=== PATIENT | male | born 1935 | race African-American/Black ===

== ENCOUNTER 2018-01-04 16:24 | Inpatient (IN) | payer MEDICARE ==
[2018-01-04] MEDS ORDERED: Insulin Regular 300 UNITS/3 ML VIAL ONE (18:32)
[2018-01-04 18:45] LABS: #Basophils 0.1 thou/uL (0.0-0.2); #Eosinphils 0.4 thou/uL (0.0-0.7); #Lymphocytes 1.5 thou/uL (1.20-3.40); #Monocytes 0.6 thou/uL (0.11-0.59); #Neutrophils 4.8 thou/uL (1.40-6.50); %Eosinophils 4.9 % (0.0-10.0); %Lymphocytes 20.9 % (21.0-51.0); %Monocytes 7.9 % (0.0-10.0); %Neutrophils 65.3 % (42.0-75.0); Hemoglobin 12.9 g/dL (14.0-18.0); Mean Corpuscular Hemoglobin 30.6 pg (27.0-31.0); Mean Corpuscular Volume 92.8 fl (80.0-94.0); Mean Platelet Volume 8.8 fL (7.4-10.4); Platelet Count 243 thou/uL (130-400); RBC Distribution Width 12.4 % (11.5-14.5); Red Blood Cell (RBC) Count 4.22 mill/uL (4.70-6.10); White Blood Cell (WBC) Count 7.3 thou/uL (4.8-10.8)
[2018-01-04 19:02] LABS: Bicarbonate (HCO3v) 17.5 mmol/L (1.0-85.0); CO2 Tension (PvCO2) 31.6 mmHg (41.0-51.0); Calcium, Ionized 1.05 mmol/L (1.12-1.32); Hemoglobin - Calc 13.9 g/dL (12.0-18.0); O2 Tension (PvO2) 51.7 mmHg (35.0-45.0); Potassium 5.6 mmol/L (3.4-4.7); T. Carbon Dioxide 18.5 mmol/L (1.0-85.0); pH (Venous) 7.351 (7.35-7.45); vO2 Saturation-calc 85.1 % (0.0-100.0)
[2018-01-04 19:11] LABS: ALT (SGPT) 20 U/L (8-55); AST (SGOT) 12 U/L (5-34); Albumin 3.4 g/dL (3.4-4.8); Alkaline Phosphatase 106 U/L (40-150); Anion Gap 19 mmol/L (10-20); BUN (Urea Nitrogen) 51 mg/dL (8.4-25.7); Bilirubin, Total 0.6 mg/dL (0.2-1.2); CK (CPK) 207 U/L (30-200); Calc. Creatinine Clearance 0 mL/min (70-130); Calcium 8.9 mg/dL (7.8-10.44); Carbon Dioxide 18 mmol/L (23-31); Chloride 97 mmol/L (98-107); Estimated GFR-MDRD 6; Globulin 3.2 g/dL (2.4-3.5); Lipase 8 U/L (8-78); Magnesium 2.5 mg/dL (1.6-2.6); Potassium 5.7 mmol/L (3.5-5.1); Protein, Total 6.6 g/dL (5.8-8.1); Sodium 128 mmol/L (136-145)
[2018-01-04 19:14] LABS: CKMB 6.6 ng/mL (0-6.6); Troponin I 0.012 ng/mL (< 0.028)
--- NOTE | 2018-01-04 19:18 | RAD ---
PORTABLE CHEST: 01/04/18 HISTORY: Dyspnea. No comparison. Elevated right hemidiaphragm. There is abnormal opacification in the left lung base which obscures the left hemidiaphragm. The find ings suggest left basilar infiltrate and/or atelectasis. The upper lung bolaños appear clear. Heart size is within normal range. IMPRESSION: 1. Evidence of left basilar atelectasis and/or infiltrate. 2. Elevated right hemidiaphragm. POS: [facility]
[2018-01-04 19:22] LABS: Glucose 666 mg/dL (83-110)
[2018-01-04 20:39] LABS: Bilirubin Negative (Negative); Blood, Urine Negative (Negative); Clarity CLEAR (Clear); Glucose, Urine (Dipstick) >=1000 mg/dL (Negative); Leukocyte Small (Negative); Nitrite Negative (Negative); Protein, Urine (Dipstick) Negative (Neg-Trace); Specific Gravity, Urine 1.016 (1.002-1.036); Urobilinogen 0.2 mg/dL (0.2-1.0); pH, Urine 6.5 (5.0-9.0)
[2018-01-04 20:41] LABS: Bacteria/HPF 1+ HPF (None Seen); Hyaline Casts/LPF 0-3 HYALINE CAST LPF (0-3 Hyaline); RBC/HPF 0-3 HPF (0-3); Squamous Epithelial 0-3 HPF (0-3)
[2018-01-04 22:34] LABS: Hemoglobin A1c 18.7 % (4.0-6.0)
[2018-01-04] MEDS ORDERED: Dextrose 5% in Water 1,000 ML IV PRN (22:42)
[2018-01-04] MEDS ORDERED: Dextrose 50% Abboject 50 ML SYRINGE SLOW IVP PRN (22:42)
[2018-01-04] MEDS: Sodium Bicarbonate 100 MEQ in Sodium Chloride 0.45% 1,000 ML IV SCH (23:46)
[2018-01-05] MEDS ORDERED: NPH, Human Insulin Isophane 300 UNIT/3 ML VIAL SC SCH (00:30)
[2018-01-05] MEDS ORDERED: Nitroglycerin 0.4 MG TAB (25 Tab Bottle) PO PRN (00:30)
[2018-01-05] MEDS ORDERED: hydrALAZINE 20 MG/ML VIAL SLOW IVP PRN (00:32)
[2018-01-05] MEDS ORDERED: Labetalol HCl 100 MG/20 ML VIAL SLOW IVP PRN (00:32)
[2018-01-05] MEDS ORDERED: Ondansetron HCl/PF 4 MG/2 ML Vial IVP PRN (00:33)
[2018-01-05] MEDS ORDERED: Ondansetron ODT 4 MG TAB PO PRN (00:33)
[2018-01-05] MEDS ORDERED: Senokot 8.6 MG TAB PO PRN (00:33)
[2018-01-05] MEDS ORDERED: Bisacodyl 10 MG SUPP PR PRN (00:33)
[2018-01-05] MEDS ORDERED: Acetaminophen 325 MG TAB PO PRN (00:33)
--- NOTE | 2018-01-05 00:39 | PDOC.EVN ---
Event Note - Event Note Event Note: Patient seen and examined on 01/04. Note dictated.
[2018-01-05] MEDS ORDERED: Terazosin HCl 5 MG CAP PO SCH (00:45)
--- NOTE | 2018-01-05 01:12 | HP ---
DATE OF ADMISSION: 01/04/2018 The patient was seen and examined on 01/04/2018. CHIEF COMPLAINT: Abnormal labs. PRIMARY CARE PHYSICIAN: [facility] in [place]. HISTORY OF PRESENT ILLNESS: Patient is an 82-year-old male with hypertension, currently on KEATON inhib itor, diabetes mellitus type 2, and hyperlipidemia, presented to the emergency room for abnormal labs . He was found to have elevated blood sugar as an outpatient for which he was advised to come to the emergency room for evaluation. His blood sugar was 709 with creatinine of 10.54 with a BUN 47. His creatinine last year was 1.33 and 2 months ago was 1.76. Patient has history of benign prostatic hypertrophy and is currently on terazosin 10 mg daily. He al so takes glimepiride for diabetes. The primary care physician is trying to switch him to insulin. H e denies any chest pain, shortness of breath, palpitations. However, over the last 2 days, he notice d bilateral lower extremity swelling. No nausea, vomiting, diarrhea reported. Please note patient i s also on 8 mEq of potassium chloride. His potassium in the emergency room was 5.4 this morning and 5.7. He received Kayexalate, Novolin 10 units and IV fluid in the emergency room. PAST MEDICAL HISTORY: 1. Diabetes mellitus type 2. 2. Hypertension. 3. Hyperlipidemia. PAST SURGICAL HISTORY: Reviewed with the patient and none. ALLERGIES: No known drug allergies. CURRENT HOME MEDICATIONS: Aspirin 81 mg daily, atenolol 100 mg daily, glimepiride 1 mg daily, terazo sin 10 mg at bedtime, potassium chloride 8 mEq daily, Lipitor 40 mg daily, amlodipine/benazepril 5/40 once a day. SOCIAL HISTORY: Patient currently lives at home, has good family support, ambulates without any assi stance. No smoking, alcohol or drug use. FAMILY HISTORY: Negative for premature coronary artery disease or renal problems. REVIEW OF SYSTEMS: The following complete review of systems was negative, unless otherwise mentioned in the HPI or below: Constitutional: Weight loss or gain, ability to conduct usual activities. Sk in: Rash, itching. Eyes: Double vision, pain. ENT/Mouth: Nose bleeding, neck stiffness, pain, te nderness. Cardiovascular: Palpitations, dyspnea on exertion, orthopnea. Respiratory: Shortness of breath, wheezing, cough, hemoptysis, fever or night sweats. Gastrointestinal: Poor appetite, abdom inal pain, heartburn, nausea, vomiting, constipation, or diarrhea. Genitourinary: Urgency, frequenc y, dysuria, nocturia. Musculoskeletal: Pain, swelling. Neurologic/Psychiatric: Anxiety, depressio n. Allergy/Immunologic: Skin rash, bleeding tendency. PHYSICAL EXAMINATION: VITAL SIGNS: In the emergency room showed temperature 97.9, respirations 20, pulse rate of 73 with a blood pressure of 149/74 with O2 saturation 98% on room air. GENERAL: An 82-year-old male in no apparent distress. HEENT: Head atraumatic, normocephalic. Sclerae anicteric. Moist mucous membranes. No oral lesion. NECK: Supple, no JVD appreciated. No carotid bruit. LUNGS: Showed diminished air entry at bases. No rhonchi, rales, or wheezing noted. HEART: S1, S2 present. Regular rate and rhythm. No murmur, rubs, or gallops appreciated. ABDOMEN: Soft, nontender, bowel sounds present. EXTREMITIES: A 2+ edema in bilateral lower extremities up to the knees. No calf tenderness. Homans ' sign was negative. SKIN: Warm and dry. LYMPH NODES: No palpable lymph nodes in the neck. PERIPHERAL VASCULAR: Radial pulses palpable bilaterally. MUSCULOSKELETAL: No joint swelling or tenderness. LABORATORY AND X-RAY FINDINGS: As discussed above. Repeat potassium was 5.6. BNP was 103. Troponi n was negative. Ketone was 0.34. Urinalysis showed glucosuria with 11-20 wbc's, 1+ bacteria. Hemog lobin was 12.9. Sodium was 128 with bicarbonate of 18. Hemoglobin A1c was 18.7. Serum osmolarity 3 12. EKG by my review showed sinus rhythm with right bundle-branch block. Chest x-ray by my review s howed probable atelectasis, more than infiltrate on the left. IMPRESSION AND PLAN: 1. Acute kidney injury on chronic kidney disease stage 2, multifactorial, rule out obstructive uropa thy. 2. Uncontrolled diabetes with severe hyperglycemia. Please note the hemoglobin A1c was 18.7. 3. Metabolic acidosis. 4. Hyperkalemia due to renal failure. 5. Hyponatremia secondary to hyperglycemia. 6. Suspected urinary tract infection. 7. Slightly elevated ketones. 8. Chronic anemia. 9. Benign prostatic hypertrophy. 10. Hypertension. 11. Hyperlipidemia. PLAN: Patient will be monitored in the telemetry unit. He received Kayexalate. Nephrology will be consulted. We will start him on sodium bicarbonate, IV infusion. We will repeat labs on a daily bas is. We will get renal ultrasound. We will hold KEATON inhibitors and oral potassium for now. Resume o ther medications. The echocardiogram will be done. We will consult walking program. Plan of care was discussed with the patient and the family in detail and they stated understanding. The patient will require 3-4 days for stabilization given his significant renal failure. CODE STATUS: FULL CODE. Surrogate decision maker, the patient makes his own decisions with the help of his family.
[2018-01-05] MEDS: Insulin Regular 300 UNITS/3 ML VIAL SC PRN ×3 (04:07→16:58)
--- NOTE | 2018-01-05 04:34 | PDOC.EVN ---
Event Note - Event Note Event Note: Postvoid residual >900 ml. Will consult Urology. Rose catheter.
[2018-01-05 05:23] LABS: #Eosinphils 0.4 thou/uL (0.0-0.7); #Lymphocytes 1.7 thou/uL (1.20-3.40); #Monocytes 0.6 thou/uL (0.11-0.59); #Neutrophils 3.7 thou/uL (1.40-6.50); %Basophils 0.7 % (0.0-1.0); %Eosinophils 6.5 % (0.0-10.0); %Lymphocytes 25.9 % (21.0-51.0); %Monocytes 8.9 % (0.0-10.0); Hemoglobin 11.9 g/dL (14.0-18.0); Mean Corpuscular HGB CONC 33.8 g/dL (32.0-36.0); Mean Corpuscular Hemoglobin 30.9 pg (27.0-31.0); Mean Corpuscular Volume 91.5 fl (80.0-94.0); Mean Platelet Volume 8.8 fL (7.4-10.4); Platelet Count 229 thou/uL (130-400); RBC Distribution Width 12.5 % (11.5-14.5); Red Blood Cell (RBC) Count 3.85 mill/uL (4.70-6.10); White Blood Cell (WBC) Count 6.4 thou/uL (4.8-10.8)
[2018-01-05 05:39] LABS: Anion Gap 17 mmol/L (10-20); BUN (Urea Nitrogen) 49 mg/dL (8.4-25.7); Calc. Creatinine Clearance 0 mL/min (70-130); Calcium 8.5 mg/dL (7.8-10.44); Carbon Dioxide 18 mmol/L (23-31); Chloride 101 mmol/L (98-107); Estimated GFR-MDRD 6; Glucose 366 mg/dL (83-110); Potassium 4.4 mmol/L (3.5-5.1); Sodium 132 mmol/L (136-145)
[2018-01-05] MEDS ORDERED: Diabetic Tussin 200 MG/10 ML UDCUP PO PRN (07:52)
[2018-01-05] MEDS ORDERED: Chloraseptic Spray 180 ml Bottle PO PRN (07:52)
[2018-01-05] MEDS ORDERED: Artificial Tears 18 DROP/0.9 ML EA EYE PRN (07:52)
[2018-01-05] MEDS ORDERED: Loratadine 10 MG TAB PO PRN (07:52)
[2018-01-05] MEDS ORDERED: Eucerin (Mineral Oil/Petrolatum,White) 30 gm Jar TOP PRN (07:52)
[2018-01-05] MEDS ORDERED: Mag-Al 1200 mg/1200 mg/30 ML UDCUP PO PRN (07:52)
[2018-01-05] MEDS ORDERED: Loperamide HCl 2 MG CAP PO PRN (07:52)
[2018-01-05] MEDS ORDERED: Temazepam 15 MG CAP PO PRN (07:52)
[2018-01-05] MEDS ORDERED: HYDROcodone/Acetaminophen 5/325 mg Tablet PO PRN (07:52)
[2018-01-05] MEDS ORDERED: Sodium Chloride 0.65% Nasal 44 ML BOT EA NARE PRN (07:52)
[2018-01-05] MEDS: Carvedilol 6.25 MG TAB PO SCH ×2 (09:20→16:58)
[2018-01-05] MEDS: Aspirin 81 mg Enteric Coated Tablet PO SCH (09:20)
[2018-01-05] MEDS: Sodium Bicarbonate 100 MEQ in Sodium Chloride 0.45% 1,000 ML IV SCH ×2 (09:20→20:45)
[2018-01-05] MEDS: NPH, Human Insulin Isophane 300 UNIT/3 ML VIAL SC SCH ×2 (09:20→20:52)
[2018-01-05] MEDS: Heparin 5,000 UNITS/ML VIAL SC SCH ×2 (09:20→20:50)
--- NOTE | 2018-01-05 09:28 | PDOC.PN ---
- Subjective Encounter Start Date: 01/05/18 Encounter Start Time: 08:10 -: old records requested/rev Patient seen and examined. No new complaints. No overnight events pt had good BM this morning, he has patel and made good amount of urine - Objective Resuscitation Status: Resuscitation Status FULL:Full Resuscitation MAR Reviewed: Yes Vital Signs & Weight: Vital Signs (12 hours) Temp Pulse Resp BP BP Pulse Ox 01/05/18 04:00 98.0 F 69 16 157/86 H 93 L 01/04/18 23:11 97.6 F 68 18 159/87 H 93 L I&O: 01/04/18 01/05/18 01/06/18 06:59 06:59 06:59 Intake Total 910 Output Total 1200 Balance -290 Result Diagrams: 01/05/18 04:37 01/05/18 04:37 Additional Labs: Accuchecks 01/05/18 04:00 POC Glucose 326 H Radiology Reviewed by me: Yes (renal us, chest xray) EKG Reviewed by me: Yes (nsr) Phys Exam - Physical Examination Constitutional: NAD HEENT: PERRLA, moist MMs, sclera anicteric Neck: no JVD, supple Respiratory: no wheezing, no rales, no rhonchi Cardiovascular: RRR, no significant murmur, no rub Gastrointestinal: soft, non-tender, no distention, positive bowel sounds patel+ Musculoskeletal: no edema, pulses present Neurological: non-focal, normal sensation, moves all 4 limbs Psychiatric: normal affect, A&O x 3 Skin: no rash, normal turgor Dx/Plan (1) Acute kidney failure Status: Acute (2) Hyperglycemia due to type 2 diabetes mellitus Code(s): E11.65 - TYPE 2 DIABETES MELLITUS WITH HYPERGLYCEMIA Status: Acute (3) Hyperkalemia Code(s): E87.5 - HYPERKALEMIA Status: Acute (4) Hyponatremia Code(s): E87.1 - HYPO-OSMOLALITY AND HYPONATREMIA Status: Acute (5) Metabolic acidosis Code(s): E87.2 - ACIDOSIS Status: Acute (6) Urinary retention Code(s): R33.9 - RETENTION OF URINE, UNSPECIFIED Status: Acute (7) Anemia, normocytic normochromic Code(s): D64.9 - ANEMIA, UNSPECIFIED Status: Chronic (8) BPH (benign prostatic hyperplasia) Code(s): N40.0 - BENIGN PROSTATIC HYPERPLASIA WITHOUT LOWER URINRY TRACT SYMP Status: Chronic (9) Dyslipidemia Code(s): E78.5 - HYPERLIPIDEMIA, UNSPECIFIED Status: Chronic (10) Hypertension Code(s): I10 - ESSENTIAL (PRIMARY) HYPERTENSION Status: Chronic (11) UTI (urinary tract infection) Status: Suspected (12) Constipation Code(s): K59.00 - CONSTIPATION, UNSPECIFIED Status: Resolved - Plan cont current plan of care * continue bicarbonate drip * monitor renal function * renal US * discussed with nephrology * urology consulted * medication reviewed as below * symptomatic treatment. Review of Systems - Review of Systems ENT: negative: Ear Pain, Ear Discharge, Nose Pain, Nose Discharge, Nose Congestion, Mouth Pain, Mouth Swelling, Throat Pain, Throat Swelling, Other Respiratory: negative: Cough, Dry, Shortness of Breath, Hemoptysis, SOB with Excertion, Pleuritic Pain, Sputum, Wheezing Cardiovascular: negative: chest pain, palpitations, orthopnea, paroxysmal nocturnal dyspnea, edema, light headedness, other Gastrointestinal: negative: Nausea, Vomiting, Abdominal Pain, Diarrhea, Constipation, Melena, Hematochezia, Other Genitourinary: negative: Dysuria, Frequency, Incontinence, Hematuria, Retention , Other Musculoskeletal: negative: Neck Pain, Shoulder Pain, Arm Pain, Back Pain, Hand Pain, Leg Pain, Foot Pain, Other Skin: negative: Rash, Lesions, Chuckie, Bruising, Other - Medications/Allergies Allergies/Adverse Reactions: Allergies Allergy/AdvReac Type Severity Reaction Status Date / Time No Known Allergies Allergy Verified 01/05/18 03:01 Medications: Current Medications Acetaminophen (Tylenol) 650 mg PO Q4H PRN PRN Reason: Headache/Fever or Pain Hydrocodone Bitart/Acetaminophen ([place] 5/325) 1 tab PO Q4H PRN PRN Reason: Moderate Pain (4-6) Al Hydroxide/Mg Hydroxide (Maalox) 15 ml PO Q4H PRN PRN Reason: Heartburn or Indigestion Artificial Tears (Tears Naturale) 0 drop EA EYE PRN PRN PRN Reason: Dry Eyes Aspirin (Ecotrin) 81 mg PO DAILY [facility] Bisacodyl (Dulcolax) 10 mg WA Q24H PRN PRN Reason: Constipation Carvedilol (Coreg) 6.25 mg PO BID[facility] Dextrose/Water (Dextrose 50%) 25 gm SLOW IVP PRN PRN PRN Reason: Hypoglycemia Docusate Sodium (Colace) 100 mg PO BID [facility] Famotidine (Pepcid) 20 mg PO DAILY [facility] Glucagon (Glucagon) 1 mg IM PRN PRN PRN Reason: Hypoglycemia Guaifenesin (Robitussin Sf) 200 mg PO Q4H PRN PRN Reason: Cough Heparin Sodium (Porcine) (Heparin) 5,000 units SC BID [facility] Hydralazine HCl (Apresoline) 10 mg SLOW IVP Q4H PRN PRN Reason: SBP Greater Than 180 Sodium Bicarbonate 100 meq/ (Sodium Chloride) 1,100 mls @ 100 mls/hr IV .Q11H [facility] Last Admin: 01/04/18 23:46 Dose: 1,100 mls Dextrose/Water (D5w) 1,000 mls @ 0 mls/hr IV .Q0M PRN; As Directed PRN Reason: Hypoglycemia Insulin Human NPH (Humulin N) 10 unit SC BID [facility] Insulin Human Regular (Humulin R) 0 units SC .MILD SLIDING SCALE PRN PRN Reason: Mild Correctional Scale Insulin Human Regular (Humulin R) 0 units SC .BEDTIME SLIDING SC PRN PRN Reason: Bedtime Correctional Scale Last Admin: 01/05/18 04:07 Dose: 4 unit Labetalol HCl (Normodyne) 10 mg SLOW IVP Q4H PRN PRN Reason: Systolic BP > 180 Loperamide HCl (Imodium) 2 mg PO PRN PRN PRN Reason: Diarrhea/Loose Stools Loratadine (Claritin) 10 mg PO DAILYPRN PRN PRN Reason: Sinus Symptoms Mineral Oil/White Petrolatum (Eucerin Cream) 0 gm TOP BIDPRN PRN PRN Reason: Dry Skin Nitroglycerin (Nitrostat) 0.4 mg PO Q5MIN PRN PRN Reason: Chest Pain Ondansetron HCl (Zofran Odt) 4 mg PO Q6H PRN PRN Reason: Nausea/Vomiting Ondansetron HCl (Zofran) 4 mg IVP Q6H PRN PRN Reason: Nausea/Vomiting Phenol (Chloraseptic [place] 180 Ml Bot) 0 ml PO PRN PRN PRN Reason: Sore Throat Senna (Senokot) 2 tab PO HSPRN PRN PRN Reason: Constipation Sodium Chloride (Flush - Normal Saline) 10 ml IVF Q12HR [facility] Sodium Chloride (Flush - Normal Saline) 10 ml IVF PRN PRN PRN Reason: Saline Flush Sodium Chloride ([place]ullivan Nasal [place] 0.65%) 0 ml EA NARE QIDPRN PRN PRN Reason: Nasal Congestion Temazepam (Restoril) 15 mg PO HSPRN PRN PRN Reason: Insomnia Terazosin HCl (Hytrin) 10 mg PO HS [facility]
--- NOTE | 2018-01-05 09:37 | ULT ---
RENAL SONOGRAM: DATE: 01/05/18. HISTORY: Renal failure. FINDINGS: There is evidence of at least a small right pleural effusion. The right kidney measures 10.2 cm x 5.2 cm with the left kidney measuring 10.5 cm x 5.9 cm. There is minimal bilateral hydronephrosis of uncertain etiology. No renal mass or renal calculus is evident on provided sonographic images of each kidney. No perinephric fluid collection is identified. A Rose catheter is noted in place in the urinary bladder. The jenkins of the urinary bladder appear p rominently thickened. While this could be attributable to the decompressed nature of the urinary dusty dder or longstanding Rose catheter in place, followup imaging is advised given the appearance of the jenkins of the urinary bladder and one region of the urinary bladder appears heterogeneous in appearan ce, but I am unsure if this is related to the urinary bladder or adjacent structures. Again, followu p evaluation is recommended. IMPRESSION: 1. Pelvocaliectasis/trace bilateral hydronephrosis. 2. Rose catheter in the urinary bladder. The jenkins of the urinary bladder also demonstrate abnorma l appearance and are more thickened than typically expected for decompressed nature of the urinary bl adder. There is an area of heterogeneity also present which could be related to a closely adjacent s tructure or the urinary bladder wall. As a result, followup evaluation of the urinary bladder is rec ommended. POS: [facility]
[2018-01-05] MEDS: Famotidine 20 MG TAB PO SCH (10:38)
[2018-01-05] MEDS: Docusate 100 MG CAP PO SCH ×2 (10:38→20:59)
--- NOTE | 2018-01-05 10:38 | CON ---
DATE OF CONSULTATION: 01/05/2018 HISTORY OF PRESENT ILLNESS: Mr. Smith is an 82-year-old black male with known history of hypertens ion and admitted for an acute kidney injury. His creatinine was noted at 10.5. He was initially at the [place] ER with a blood sugar of 709. At the same time, there was a concomitant finding of creatinine of 10.5. Previously, his creatinine was ranging form 1.3 to 1.7. Of interest, this patie nt is unaware about having any renal dysfunction in the past. REVIEW OF SYSTEMS: No nausea, no vomiting, occasional leg swelling. No abdominal pain, no diarrhea, no constipation, no headache, no diplopia, no syncopal episode, no productive cough, no fever or chi lls. Appetite and energy level is fair. No abdominal pain. No gross hematuria. No dysuria, no uri nary frequency, no hematochezia, no melena, no hematemesis. HOME MEDICATIONS: Includes the following, aspirin 81 mg daily, atenolol 100 mg once a day, glimepiri de 1 mg daily, terazosin 10 mg at bedtime, KCl 10 mEq daily, Lipitor 40 mg at bedtime, amlodipine/tahira azepril - 5/40 daily. PAST MEDICAL HISTORY: 1. Type 2 diabetes mellitus. 2. Hypertension. 3. Hyperlipidemia. PAST SURGICAL HISTORY: The patient denies any previous surgeries - he states this is the first time he has been in the hospital. ALLERGIES: No known drug allergies. TRAUMA: None. IMMUNIZATIONS: Up to date. HOSPITALIZATIONS: Please see past medical history. FAMILY HISTORY: No family history of ESRD. SOCIAL HISTORY: The patient originally from [place] and moved to [place] recently. He lives wi th his child. He has six children. Single. No alcohol intake, no IV drug abuse. No history of smo suze. No blood transfusion. Education, 8th grade. 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 PHYSICAL EXAMINATION: VITAL SIGNS: Blood pressure is 157/86, heart rate 69, respiratory rate 16, temperature 98, pulse ox 93%. GENERAL: Noted to be awake, alert, comfortable, ambulatory, not in distress. SKIN: Adequate turgor. HEENT: He has pinkish conjunctivae, anicteric sclerae. NECK: No neck mass, no carotid bruits, no JVD. CHEST: No deformities. LUNGS: Clear breath sounds. No wheezing, no crackles. HEART: Normal sinus rhythm. No murmur, no gallops or rubs. ABDOMEN: Globular, soft, nontender, no masses. EXTREMITIES: No edema. NEUROLOGIC: Moving all extremities. No tremors, no asterixis, no ataxia. LABORATORY DATA AND IMAGING: Of 01/05/2018, sodium 132, potassium 4.4, chloride 101, carbon dioxide 18, BUN is 49, creatinine 10.7, glucose 366, calcium 8.5. BNP is 103. Further review of serum creat inine shows the following on 01/04/2018, 10.7. Previous creatinine was 1.7 earlier last year. Chest x-ray, no CHF. Renal ultrasound is pending. Urinalysis of 12/2017, specific gravity 1.016, glucose is more than 1000, no protein, WBC 11-20, RBCs , 0-3. ASSESSMENT AND PLAN: Acute kidney injury - hemodynamically mediated renal dysfunction. Please note, this patient has been taking KEATON inhibitors. Unclear, if he was on a diuretic previously. Our plan is to empirically volume replete him. We are awaiting results of the renal ultrasound. He is makin g some significant urine output. There is no indication for any dialytic intervention with this hiram ent. Continue to hold off any diuretics, KEATON inhibitors or ARB. Overall, I agree with current manag ement. Recheck base met and CBC in a.m.
[2018-01-05] MEDS: Terazosin HCl 5 MG CAP PO SCH (20:49)
[2018-01-06 02:34] VITALS: BMI 30.1
[2018-01-06 05:44] LABS: #Basophils 0.1 thou/uL (0.0-0.2); #Eosinphils 0.3 thou/uL (0.0-0.7); #Lymphocytes 2.3 thou/uL (1.20-3.40); #Monocytes 0.9 thou/uL (0.11-0.59); #Neutrophils 5.1 thou/uL (1.40-6.50); %Basophils 1.1 % (0.0-1.0); %Lymphocytes 26.2 % (21.0-51.0); %Monocytes 10.8 % (0.0-10.0); Hemoglobin 12.3 g/dL (14.0-18.0); Mean Corpuscular HGB CONC 33.6 g/dL (32.0-36.0); Mean Corpuscular Hemoglobin 30.8 pg (27.0-31.0); Mean Corpuscular Volume 91.7 fl (80.0-94.0); Mean Platelet Volume 8.6 fL (7.4-10.4); Platelet Count 253 thou/uL (130-400); RBC Distribution Width 12.7 % (11.5-14.5); Red Blood Cell (RBC) Count 4.01 mill/uL (4.70-6.10); White Blood Cell (WBC) Count 8.7 thou/uL (4.8-10.8)
[2018-01-06] MEDS: Sodium Bicarbonate 100 MEQ in Sodium Chloride 0.45% 1,000 ML IV SCH (07:05)
[2018-01-06 07:41] LABS: Calcium 9.2 mg/dL (7.8-10.44); Chloride 104 mmol/L (98-107); Glucose 154 mg/dL (83-110); Potassium 3.2 mmol/L (3.5-5.1); Sodium 141 mmol/L (136-145)
[2018-01-06 07:43] LABS: Anion Gap 10 mmol/L (10-20); Carbon Dioxide 30 mmol/L (23-31)
[2018-01-06 07:46] LABS: BUN (Urea Nitrogen) 16 mg/dL (8.4-25.7)
[2018-01-06 08:15] LABS: Calc. Creatinine Clearance 0 mL/min (70-130); Estimated GFR-MDRD 41
[2018-01-06] MEDS: Carvedilol 6.25 MG TAB PO SCH ×2 (09:01→18:27)
[2018-01-06] MEDS: Aspirin 81 mg Enteric Coated Tablet PO SCH (09:01)
[2018-01-06] MEDS: Docusate 100 MG CAP PO SCH ×2 (09:01→21:16)
[2018-01-06] MEDS: Famotidine 20 MG TAB PO SCH (09:01)
[2018-01-06] MEDS: NPH, Human Insulin Isophane 300 UNIT/3 ML VIAL SC SCH (09:02)
[2018-01-06] MEDS: Heparin 5,000 UNITS/ML VIAL SC SCH (09:02)
[2018-01-06] MEDS ORDERED: Potassium Chloride 20 MEQ TAB PO SCH (09:30)
[2018-01-06] MEDS: Sodium Chloride 0.9% 1,000 ML IV SCH ×2 (10:00→18:27)
--- NOTE | 2018-01-06 11:32 | PRG ---
DATE OF SERVICE: 01/06/2018 RENAL MEDICINE SUBJECTIVE: Mr. Smith is an 82-year-old old black male who was admitted for acute kidney injury. His initial creatinine was noted at 10.74. He was given IV hydration and Rose catheter was inserted . This morning, his renal function is dramatically improved with a creatinine of 1.9. Please note t hat ultrasound suggested some traces of mild bilateral hydronephrosis. There were some abnormalities with the bladder at the same time. It looks contracted. This morning, he voices no new complaints. He denies any chest pain or shortness of breath. PHYSICAL EXAMINATION: VITAL SIGNS: Blood pressure is 141/70, heart rate 77, respiratory rate 18, temperature 98.7, pulse o ximetry 92%. GENERAL: Awake, alert, comfortable, not in distress. SKIN: Adequate turgor. HEENT: Pinkish conjunctivae, anicteric sclerae. NECK: No neck mass, no carotid bruits, no JVD. CHEST: No deformities. LUNGS: Clear breath sounds. No wheezing, no crackles. HEART: Normal sinus rhythm. No murmurs, no gallops, no rubs. ABDOMEN: Globular, soft, nontender, no masses. EXTREMITIES: No edema, no deformities. MEDICATIONS: Medications of 01/06/2018 was reviewed. LABORATORY DATA: Laboratories of 01/06/2018; sodium 141, potassium 3.2, chloride 104, carbon dioxide 30, BUN 16, creatinine 1.91, calcium is 9.2. White count 8.7, hemoglobin 12.3. IMAGING DATA: Renal ultrasound on 01/05/2018 shows pelvocaliectasis with trace bilateral hydronephro sis. The urinary bladder was more thickened. There is also an area of heterogeneity. ASSESSMENT AND PLAN: Acute kidney injury - multifactorial. This could be related to hemodynamically mediated renal dysfunction with possible low bladder outlet obstruction?. Please note he had a Fole y catheter placed on him on the night of admission, but renal ultrasound was done later that morning and it may have not got initial low bladder outlet obstruction. However, due to the urinary bladder abnormality, Urology consult has been done. For the moment, agree with current management. Agree wi th IV volume repletion. Continue to leave the Rose catheter. Hold off any KEATON inhibitors or IV hyd ration or any diuretics. There is no indication for any dialytic intervention. Recheck basic metabo lic panel and CBC in a.m.
[2018-01-06] MEDS: Insulin Regular 300 UNITS/3 ML VIAL SC PRN ×3 (13:45→23:05)
--- NOTE | 2018-01-06 15:29 | CON ---
DATE OF CONSULTATION: 01/06/2018 CONSULTING PHYSICIAN: Dr. Madsen. CONSULTED PHYSICIAN: Kleber Rock M.D. REASON FOR CONSULTATION: Urinary retention. HISTORY OF PRESENT ILLNESS: Mr. Smith is an 82-year-old black male who was admitted for acute kidn ey injury with hyperglycemia and hypertension. His creatinine was elevated to 10 and as part of his workup, he underwent a renal ultrasound which demonstrated that he had no hydronephrosis. His bladde r already had a catheter at that time which was decompressed. His creatinine is improved significant ly while here in the hospital and the patient underwent a voiding trial in which his catheter was rem ibis. The patient had voided an unknown amount, but had over 900 mL of postvoid residual in his blad christelle. The Rose catheter was reinserted and Urology was consulted for further assistance. On my disc ussion with the patient, he states that he normally does not have any significant problems voiding at home. He does take terazosin 10 mg once a day which he has been doing for many years. He states he has always felt that he has urinated relatively well. He has no prior history of urinary retention, gross hematuria, urinary tract infections, nephrolithiasis or prior urologic surgeries. ALLERGIES: None. HOME MEDICATIONS: 1. Aspirin. 2. Atenolol. 3. Glimepiride. 4. Terazosin 10 mg. 5. Potassium chloride. 6. Lipitor. 7. Amlodipine/benazepril. PAST MEDICAL HISTORY: 1. Diabetes mellitus type 2. 2. Hypertension. 3. Hyperlipidemia. PAST SURGICAL HISTORY: None. SOCIAL HISTORY: Patient lives at home with good family and friend support. He ambulates without ass istance. Denies smoking, alcohol or illicit drug use. FAMILY HISTORY: Negative for prostate issues and urinary problems. REVIEW OF SYSTEMS: A 12 point review of systems was entirely unremarkable. The patient states he is feeling fine. PHYSICAL EXAMINATION: VITAL SIGNS: Temperature 98.1, pulse 77, respirations 16, blood pressure 164/80, saturations 94% on room air. GENERAL: No apparent distress, communicative and alert. Appears slightly younger than stated age, c ognitively sharp, answers questions appropriately. HEENT: Normocephalic, atraumatic. Sclerae are nonicteric. Pupils are symmetric and round. Extraoc ular movements intact. Trachea midline. Slightly poor dentition. CARDIOVASCULAR: Regular rate and rhythm. Normal S1 and S2. CHEST: No increased work of breathing. Symmetric expansion of lungs. Clear anteriorly. ABDOMEN: Soft, nontender, nondistended, positive bowel sounds, no organomegaly. No rebound, guardin g or peritoneal signs. BACK: No CVA tenderness. GENITOURINARY: Rose catheter in place with slightly blood tinged urine which is otherwise clear wit hout clots. Catheter is secured. Testes are bilaterally descended. Penis is otherwise nonfocal. RECTAL: Demonstrates a grade 4 prostate which is nontender, smooth and without nodules or concerning lesions. EXTREMITIES: No clubbing, cyanosis or edema. MUSCULOSKELETAL: No joint deformities or joint erythema noted. Full range of motion. Ambulates wit hout assistance. NEUROLOGIC: Cranial nerves II-XII appears grossly intact. No focal or sensory deficits identified. SKIN: Warm, dry, no rashes. Slightly poor turgor. LABORATORY DATA AND X-RAY FINDINGS: On laboratory evaluation, a full set of labs are in the [employer] system, which I have reviewed. Of note, the patient's hemoglobin is 12.3 with white count of 8.7. Creatinine is currently 1.91, down from 10.7. Blood sugar is still not well controlled with blood bone gar of 326. Urinalysis demonstrates over 1000 glucose, small leukocyte esterase, 10-20 white cells, and 1+ bacteria. Clean catch urine from 01/04/2018 demonstrates possible mixed culture. Attempted i solation is currently in progress. IMAGING: Renal ultrasound from 01/05/2018 demonstrates extremely mild pelvicaliectasis with trace bi lateral hydronephrosis. There is a Rose catheter in the urinary bladder which demonstrates a slight ly more thickened appearance than a traditionally decompressed bladder. There is an area of heteroge neity which also present which could be related to closely adjacent structure or a problem with urina ry bladder wall itself. ASSESSMENT AND PLAN: An 82-year-old black male with urinary retention, possibly multifactorial. The patient may be developing neurogenic bladder from diabetes versus the events that led to his acute k idney injury that may have also caused his urinary retention. The patient has extremely mild hydrone phrosis which is probably related to his original urinary retention which has resolved. As his creat inine has significantly improved, I am not entirely concerned about this and I do not think any furth er workup is necessary at this time. We will probably obtain further imaging as an outpatient if nec essary. I would recommend continuation of terazosin and given that it is extremely large prostate, I think initiation of finasteride would also be reasonable, although this will not take effect for abo ut 2-3 months. For now given that he had an over-distention injury with over 900 mL in his bladder, I would not recommend attempts at a voiding trial again as this would potentially risk another over-d istention injury which could be devastating in an 82-year-old who is diabetic. I would recommend con tinuation of his Rose catheter for at least 1 week at which time he can follow up with me in the off ice for a voiding trial. His further care can be handled as an outpatient. SUMMARY OF RECOMMENDATIONS: 1. Continue terazosin 10 mg p.o. at bedtime. 2. Start finasteride 5 mg p.o. once a day with outpatient continuation of this medication. 3. Continue Rose catheter to leg bag and gravity bag. 4. Follow up as an outpatient for a voiding trial in 1 week. 5. We will potentially reassess with renal ultrasound in the future if concern or reason arises. Thank you for this consultation. I will sign off currently. Please reconsult if there are any [employer] questions or issues.
--- NOTE | 2018-01-06 20:22 | PDOC.PN ---
- Subjective Encounter Start Date: 01/06/18 Encounter Start Time: 15:00 Patient seen and examined. No new complaints. No overnight events - Objective Resuscitation Status: Resuscitation Status FULL:Full Resuscitation MAR Reviewed: Yes Vital Signs & Weight: Vital Signs (12 hours) Temp Pulse Resp BP BP BP Pulse Ox 01/06/18 19:54 99.0 F 81 16 162/83 H 92 L 01/06/18 18:27 156/83 H 01/06/18 16:00 98.5 F 83 16 156/83 H 93 L 01/06/18 12:00 98.1 F 77 16 164/80 H 94 L 01/06/18 09:01 141/70 H Weight Weight 6.445 oz I&O: 01/05/18 01/06/18 01/07/18 06:59 06:59 06:59 Intake Total 910 1137 2720 Output Total 7271 823 6022 Balance -290 058 -430 Result Diagrams: 01/06/18 04:42 01/06/18 07:16 Additional Labs: Accuchecks 01/06/18 01/06/18 01/06/18 16:36 10:43 06:02 POC Glucose 200 H 326 H 137 H 01/05/18 01/05/18 20:41 12:03 POC Glucose 235 H 211 H EKG Reviewed by me: Yes (Tele SR) Phys Exam - Physical Examination Constitutional: NAD Respiratory: no wheezing, no rhonchi Cardiovascular: RRR, no rub Gastrointestinal: soft, non-tender, positive bowel sounds Musculoskeletal: no edema Dx/Plan - Plan DVT proph w/SCDs IMPRESSION AND PLAN: 1. Acute kidney injury on chronic kidney disease stage 2, due to obstructive uropathy. 2. Uncontrolled diabetes with severe hyperglycemia. (Hemoglobin A1c was 18.7.) 3. Metabolic acidosis. 4. Hyperkalemia due to renal failure. resolved 5. Hyponatremia secondary to hyperglycemia. 6. Suspected urinary tract infection. 7. Slightly elevated ketones. 8. Chronic anemia. 9. Benign prostatic hypertrophy. 10. Hypertension. 11. Hyperlipidemia. 12. Hypokalemia PLAN: * Urology input appreciated * AM labs * Nephrology following * Echo reviewed. * Cont Rose catheter * Finasteride started * Cont to monitor * Resume Atenolol and Amlodipine * Change NPH to Levemir * Pharmacy added. * Replace Potassium Review of Systems - Review of Systems Respiratory: negative: Cough, Dry, Shortness of Breath, Hemoptysis, SOB with Excertion, Pleuritic Pain, Sputum, Wheezing Cardiovascular: negative: chest pain, palpitations, orthopnea, paroxysmal nocturnal dyspnea, edema, light headedness - Medications/Allergies Allergies/Adverse Reactions: Allergies Allergy/AdvReac Type Severity Reaction Status Date / Time No Known Allergies Allergy Verified 01/05/18 03:01 Medications: Current Medications Acetaminophen (Tylenol) 650 mg PO Q4H PRN PRN Reason: Headache/Fever or Pain Hydrocodone Bitart/Acetaminophen ([place] 5/325) 1 tab PO Q4H PRN PRN Reason: Moderate Pain (4-6) Al Hydroxide/Mg Hydroxide (Maalox) 15 ml PO Q4H PRN PRN Reason: Heartburn or Indigestion Amlodipine Besylate (Norvasc) 5 mg PO DAILY [facility] Artificial Tears (Tears Naturale) 0 drop EA EYE PRN PRN PRN Reason: Dry Eyes Aspirin (Ecotrin) 81 mg PO DAILY [facility] Last Admin: 01/06/18 09:01 Dose: 81 mg Bisacodyl (Dulcolax) 10 mg [place] Q24H PRN PRN Reason: Constipation Dextrose/Water (Dextrose 50%) 25 gm SLOW IVP PRN PRN PRN Reason: Hypoglycemia Docusate Sodium (Colace) 100 mg PO BID [facility] Last Admin: 01/06/18 09:01 Dose: 100 mg Famotidine (Pepcid) 20 mg PO DAILY [facility] Last Admin: 01/06/18 09:01 Dose: 20 mg Finasteride (Proscar) 5 mg PO DAILY [facility] Glimepiride (Amaryl) 1 mg PO DAILY [facility] Glucagon (Glucagon) 1 mg IM PRN PRN PRN Reason: Hypoglycemia Guaifenesin (Robitussin Sf) 200 mg PO Q4H PRN PRN Reason: Cough Hydralazine HCl (Apresoline) 10 mg SLOW IVP Q4H PRN PRN Reason: SBP Greater Than 180 Last Admin: 01/05/18 12:34 Dose: 10 mg Dextrose/Water (D5w) 1,000 mls @ 0 mls/hr IV .Q0M PRN; As Directed PRN Reason: Hypoglycemia Sodium Chloride (Normal Saline 0.9%) 1,000 mls @ 125 mls/hr IV .Q8H [facility] Last Admin: 01/06/18 18:27 Dose: 1,000 mls Insulin Detemir 15 units/ (Miscellaneous Medication) 0.15 mls @ 0 mls/hr SC [facility] Insulin Human Regular (Humulin R) 0 units SC .MILD SLIDING SCALE PRN PRN Reason: Mild Correctional Scale Last Admin: 01/06/18 18:27 Dose: 2 unit Insulin Human Regular (Humulin R) 0 units SC .BEDTIME SLIDING SC PRN PRN Reason: Bedtime Correctional Scale Last Admin: 01/05/18 04:07 Dose: 4 unit Labetalol HCl (Normodyne) 10 mg SLOW IVP Q4H PRN PRN Reason: Systolic BP > 180 Loperamide HCl (Imodium) 2 mg PO PRN PRN PRN Reason: Diarrhea/Loose Stools Loratadine (Claritin) 10 mg PO DAILYPRN PRN PRN Reason: Sinus Symptoms Mineral Oil/White Petrolatum (Eucerin Cream) 0 gm TOP BIDPRN PRN PRN Reason: Dry Skin Nitroglycerin (Nitrostat) 0.4 mg PO Q5MIN PRN PRN Reason: Chest Pain Non-Formulary Medication (Atenolol [Atenolol]) 100 mg PO DAILY [facility] Ondansetron HCl (Zofran Odt) 4 mg PO Q6H PRN PRN Reason: Nausea/Vomiting Ondansetron HCl (Zofran) 4 mg IVP Q6H PRN PRN Reason: Nausea/Vomiting Phenol (Chloraseptic [place] 180 Ml Bot) 0 ml PO PRN PRN PRN Reason: Sore Throat Senna (Senokot) 2 tab PO HSPRN PRN PRN Reason: Constipation Sodium Chloride (Flush - Normal Saline) 10 ml IVF Q12HR [facility] Last Admin: 01/06/18 07:05 Dose: 10 ml Sodium Chloride (Flush - Normal Saline) 10 ml IVF PRN PRN PRN Reason: Saline Flush Sodium Chloride ([place] Nasal [place] 0.65%) 0 ml EA NARE QIDPRN PRN PRN Reason: Nasal Congestion Temazepam (Restoril) 15 mg PO HSPRN PRN PRN Reason: Insomnia Terazosin HCl (Hytrin) 10 mg PO [facility] Last Admin: 01/05/18 20:49 Dose: 10 mg
[2018-01-06] MEDS: Terazosin HCl 5 MG CAP PO SCH (21:17)
[2018-01-06] MEDS: Insulin Detemir 100 UNITS/ML 15 UNITS in Pre-Filled Syringe 1 EACH SC SCH (21:17)
[2018-01-07] MEDS: Insulin Regular 300 UNITS/3 ML VIAL SC PRN ×3 (01:10→17:59)
[2018-01-07] MEDS: Sodium Chloride 0.9% 1,000 ML IV SCH ×4 (02:48→17:57)
[2018-01-07 05:06] LABS: #Eosinphils 0.4 thou/uL (0.0-0.7); #Lymphocytes 2.1 thou/uL (1.20-3.40); #Neutrophils 5.1 thou/uL (1.40-6.50); %Basophils 0.4 % (0.0-1.0); %Eosinophils 4.4 % (0.0-10.0); %Lymphocytes 24.2 % (21.0-51.0); %Monocytes 11.9 % (0.0-10.0); %Neutrophils 59.1 % (42.0-75.0); Hemoglobin 11.8 g/dL (14.0-18.0); Mean Corpuscular HGB CONC 33.3 g/dL (32.0-36.0); Mean Corpuscular Hemoglobin 31.1 pg (27.0-31.0); Mean Corpuscular Volume 93.3 fl (80.0-94.0); Mean Platelet Volume 8.3 fL (7.4-10.4); Platelet Count 242 thou/uL (130-400); RBC Distribution Width 12.6 % (11.5-14.5); Red Blood Cell (RBC) Count 3.81 mill/uL (4.70-6.10); White Blood Cell (WBC) Count 8.7 thou/uL (4.8-10.8)
[2018-01-07 05:16] LABS: Anion Gap 11 mmol/L (10-20); BUN (Urea Nitrogen) 10 mg/dL (8.4-25.7); Calc. Creatinine Clearance 54 mL/min (70-130); Calcium 8.8 mg/dL (7.8-10.44); Carbon Dioxide 28 mmol/L (23-31); Chloride 103 mmol/L (98-107); Estimated GFR-MDRD 69; Glucose 170 mg/dL (83-110); Potassium 3.2 mmol/L (3.5-5.1); Sodium 139 mmol/L (136-145)
[2018-01-07] MEDS: Amlodipine 5 MG TAB PO SCH (08:54)
[2018-01-07] MEDS: Docusate 100 MG CAP PO SCH ×2 (08:54→21:01)
[2018-01-07] MEDS: Aspirin 81 mg Enteric Coated Tablet PO SCH (08:55)
[2018-01-07] MEDS: Famotidine 20 MG TAB PO SCH (08:55)
[2018-01-07] MEDS: Finasteride 5 MG TAB PO SCH (08:56)
[2018-01-07] MEDS ORDERED: Potassium Chloride 20 MEQ TAB PO SCH ×3 (09:00→17:00)
[2018-01-07] MEDS ORDERED: Non-Formulary Item 1 EACH (Atenolol [Atenolol] 100 MG) PO SCH (09:00)
[2018-01-07] MEDS: Atenolol 50 MG TAB PO SCH (10:53)
[2018-01-07] MEDS: Glimepiride 1 MG TAB PO SCH (10:54)
--- NOTE | 2018-01-07 13:09 | PRG ---
DATE OF SERVICE: 01/07/2018 SUBJECTIVE: Mr. Smith is an 82-year-old black male who was seen for an acute kidney injury. The e xact etiology of his renal dysfunction remains unclear. Initially, we thought this was only hemodyna mically mediated renal dysfunction. He received adequate hydration. However, the ultrasound suggest s some possibility of hydronephrosis. He has been evaluated by Urology. The feeling is that he may have also a combined low bladder outlet obstruction. Recommendation is to leave the Rose catheter a s is. This morning, he is feeling better. He voices no new complaints. He denies any chest pain or shortness of breath. OBJECTIVE: VITAL SIGNS: Blood pressure is 159/86, heart rate 82, respiratory rate 16, temperature 98.2, pulse o x 94%. GENERAL: Noted to be awake, alert, supine, comfortable, not in distress. SKIN: Adequate turgor. HEENT: He has pinkish conjunctivae, anicteric sclerae. NECK: No neck mass, no carotid bruits, no JVD. CHEST: No deformities. LUNGS: Clear breath sounds. No wheezing, no crackles. HEART: Normal sinus rhythm. No murmur, no gallops, no rubs. ABDOMEN: Globular, soft, nontender. No masses. EXTREMITIES: No edema, no deformities. MEDICATIONS: Of 01/07/2018 reviewed. LABORATORY DATA: Of 01/07/2018, white count 8.7, hemoglobin 11.8, sodium 139, potassium 3.2, chlorid e 103, carbon dioxide 28, BUN 10, creatinine 1.23, calcium 8.8. ASSESSMENT AND PLAN: 1. Acute kidney injury, much improved renal dysfunction. This is probably a combination of a low bl adder outlet obstruction with some degree of volume depletion. I agree with current management. Uro logy is following. There is no indication for any dialytic intervention. 2. Mild hypokalemia, 40 mEq KCl one tab to be given today. From the renal point of view, this patie nt could be discharged. We will follow him up as an outpatient.
[2018-01-07 18:23] LABS: Potassium 3.5 mmol/L (3.5-5.1)
[2018-01-07] MEDS: Insulin Detemir 100 UNITS/ML 15 UNITS in Pre-Filled Syringe 1 EACH SC SCH (21:01)
[2018-01-07] MEDS: Terazosin HCl 5 MG CAP PO SCH (21:01)
--- NOTE | 2018-01-07 22:15 | PDOC.PN ---
- Subjective Encounter Start Date: 01/07/18 Encounter Start Time: 15:00 Patient seen and examined. No new complaints. No overnight events - Objective Resuscitation Status: Resuscitation Status FULL:Full Resuscitation MAR Reviewed: Yes Vital Signs & Weight: Vital Signs (12 hours) Temp Pulse Resp BP BP BP Pulse Ox 01/07/18 16:20 97.4 F L 63 20 114/59 L 92 L 01/07/18 11:26 97.5 F L 80 20 168/81 H 92 L 01/07/18 10:53 82 168/81 H Weight Weight 176 lb 12.8 oz I&O: 01/06/18 01/07/18 01/08/18 06:59 06:59 06:59 Intake Total 1137 4210 2470 Output Total 344 5875 2365 Balance 587 -1665 105 Result Diagrams: 01/07/18 04:36 01/08/18 04:32 Additional Labs: Accuchecks 01/07/18 01/07/18 01/07/18 20:01 16:06 11:13 POC Glucose 185 H 250 H 280 H 01/07/18 01/07/18 05:09 00:51 POC Glucose 151 H 275 H EKG Reviewed by me: Yes (Tele SR) Phys Exam - Physical Examination Constitutional: NAD Respiratory: no wheezing, no rhonchi Cardiovascular: RRR, no rub Gastrointestinal: soft, non-tender, positive bowel sounds Musculoskeletal: no edema Dx/Plan - Plan DVT proph w/SCDs IMPRESSION AND PLAN: 1. Acute kidney injury on chronic kidney disease stage 2, due to obstructive uropathy. 2. Uncontrolled diabetes with severe hyperglycemia. (Hemoglobin A1c was 18.7.) 3. Metabolic acidosis. 4. Hyperkalemia due to renal failure. resolved 5. Hyponatremia secondary to hyperglycemia. 6. Suspected urinary tract infection. 7. Slightly elevated ketones. 8. Chronic anemia. 9. Benign prostatic hypertrophy. 10. Hypertension. 11. Hyperlipidemia. 12. Hypokalemia PLAN: * Urology/Nephro following * Replace Potassium * AM labs * HHC eval * Possible dc in AM if stable Review of Systems - Review of Systems Respiratory: negative: Cough, Dry, Shortness of Breath, Hemoptysis, SOB with Excertion, Pleuritic Pain, Sputum, Wheezing Cardiovascular: negative: chest pain, palpitations, orthopnea, paroxysmal nocturnal dyspnea, edema, light headedness - Medications/Allergies Allergies/Adverse Reactions: Allergies Allergy/AdvReac Type Severity Reaction Status Date / Time No Known Allergies Allergy Verified 01/05/18 03:01 Medications: Current Medications Acetaminophen (Tylenol) 650 mg PO Q4H PRN PRN Reason: Headache/Fever or Pain Hydrocodone Bitart/Acetaminophen ([place] 5/325) 1 tab PO Q4H PRN PRN Reason: Moderate Pain (4-6) Al Hydroxide/Mg Hydroxide (Maalox) 15 ml PO Q4H PRN PRN Reason: Heartburn or Indigestion Amlodipine Besylate (Norvasc) 5 mg PO DAILY [facility] Last Admin: 01/07/18 08:54 Dose: 5 mg Artificial Tears (Tears Naturale) 0 drop EA EYE PRN PRN PRN Reason: Dry Eyes Aspirin (Ecotrin) 81 mg PO DAILY [facility] Last Admin: 01/07/18 08:55 Dose: 81 mg Atenolol (Tenormin) 100 mg PO DAILY [facility] Last Admin: 01/07/18 10:53 Dose: 100 mg Bisacodyl (Dulcolax) 10 mg [place] Q24H PRN PRN Reason: Constipation Dextrose/Water (Dextrose 50%) 25 gm SLOW IVP PRN PRN PRN Reason: Hypoglycemia Docusate Sodium (Colace) 100 mg PO BID [facility] Last Admin: 01/07/18 21:01 Dose: 100 mg Famotidine (Pepcid) 20 mg PO DAILY [facility] Last Admin: 01/07/18 08:55 Dose: 20 mg Finasteride (Proscar) 5 mg PO DAILY [facility] Last Admin: 01/07/18 08:56 Dose: 5 mg Glimepiride (Amaryl) 1 mg PO DAILY [facility] Last Admin: 01/07/18 10:54 Dose: 1 mg Glucagon (Glucagon) 1 mg IM PRN PRN PRN Reason: Hypoglycemia Guaifenesin (Robitussin Sf) 200 mg PO Q4H PRN PRN Reason: Cough Hydralazine HCl (Apresoline) 10 mg SLOW IVP Q4H PRN PRN Reason: SBP Greater Than 180 Last Admin: 01/05/18 12:34 Dose: 10 mg Dextrose/Water (D5w) 1,000 mls @ 0 mls/hr IV .Q0M PRN; As Directed PRN Reason: Hypoglycemia Sodium Chloride (Normal Saline 0.9%) 1,000 mls @ 125 mls/hr IV .Q8H [facility] Last Admin: 01/07/18 17:57 Dose: 1,000 mls Insulin Detemir 15 units/ (Miscellaneous Medication) 0.15 mls @ 0 mls/hr SC HS [facility] Last Admin: 01/07/18 21:01 Dose: 0.15 mls Insulin Human Regular (Humulin R) 0 units SC .MILD SLIDING SCALE PRN PRN Reason: Mild Correctional Scale Last Admin: 01/07/18 17:59 Dose: 3 unit Insulin Human Regular (Humulin R) 0 units SC .BEDTIME SLIDING SC PRN PRN Reason: Bedtime Correctional Scale Last Admin: 01/07/18 01:10 Dose: 3 unit Labetalol HCl (Normodyne) 10 mg SLOW IVP Q4H PRN PRN Reason: Systolic BP > 180 Loperamide HCl (Imodium) 2 mg PO PRN PRN PRN Reason: Diarrhea/Loose Stools Loratadine (Claritin) 10 mg PO DAILYPRN PRN PRN Reason: Sinus Symptoms Mineral Oil/White Petrolatum (Eucerin Cream) 0 gm TOP BIDPRN PRN PRN Reason: Dry Skin Nitroglycerin (Nitrostat) 0.4 mg PO Q5MIN PRN PRN Reason: Chest Pain Ondansetron HCl (Zofran Odt) 4 mg PO Q6H PRN PRN Reason: Nausea/Vomiting Ondansetron HCl (Zofran) 4 mg IVP Q6H PRN PRN Reason: Nausea/Vomiting Phenol (Chloraseptic [place] 180 Ml Bot) 0 ml PO PRN PRN PRN Reason: Sore Throat Potassium Chloride (K-Dur) 20 meq PO 1400 [facility] Last Admin: 01/07/18 14:42 Dose: 20 meq Senna (Senokot) 2 tab PO HSPRN PRN PRN Reason: Constipation Sodium Chloride (Flush - Normal Saline) 10 ml IVF Q12HR [facility] Last Admin: 01/07/18 21:02 Dose: Not Given Sodium Chloride (Flush - Normal Saline) 10 ml IVF PRN PRN PRN Reason: Saline Flush Sodium Chloride ([place] Nasal [place] 0.65%) 0 ml EA NARE QIDPRN PRN PRN Reason: Nasal Congestion Temazepam (Restoril) 15 mg PO HSPRN PRN PRN Reason: Insomnia Terazosin HCl (Hytrin) 10 mg PO HS [facility] Last Admin: 01/07/18 21:01 Dose: 10 mg
[2018-01-08 05:39] LABS: Anion Gap 7 mmol/L (10-20); BUN (Urea Nitrogen) 8 mg/dL (8.4-25.7); Calc. Creatinine Clearance 64 mL/min (70-130); Calcium 8.9 mg/dL (7.8-10.44); Carbon Dioxide 30 mmol/L (23-31); Chloride 104 mmol/L (98-107); Estimated GFR-MDRD 82; Glucose 143 mg/dL (83-110); Potassium 3.1 mmol/L (3.5-5.1); Sodium 138 mmol/L (136-145)
[2018-01-08] MEDS: Sodium Chloride 0.9% 1,000 ML IV SCH ×2 (06:20→09:06)
[2018-01-08] MEDS ORDERED: Potassium Chloride 20 MEQ TAB PO SCH (06:45)
[2018-01-08 07:51] VITALS: TEMP 96.3
[2018-01-08] MEDS: Atenolol 50 MG TAB PO SCH (08:59)
[2018-01-08] MEDS: Aspirin 81 mg Enteric Coated Tablet PO SCH (08:59)
[2018-01-08] MEDS: Finasteride 5 MG TAB PO SCH (08:59)
[2018-01-08] MEDS: Docusate 100 MG CAP PO SCH (08:59)
[2018-01-08] MEDS: Amlodipine 5 MG TAB PO SCH (08:59)
[2018-01-08] MEDS: Famotidine 20 MG TAB PO SCH (08:59)
[2018-01-08] MEDS: Glimepiride 1 MG TAB PO SCH (11:38)
[2018-01-08 11:47] VITALS: BP 167/81
--- NOTE | 2018-01-08 15:24 | DIS ---
DATE OF DISCHARGE: 01/08/2018 DISCHARGE DISPOSITION: Home with [facility]. FOLLOWUP: 1. Follow up with Kathrin Gaxiola, primary care in 1 week. 2. Follow up with [facility] in 1 week. 3. Follow up with Dr. Porter in 2-3 weeks. ALLERGIES: No known drug allergies. The patient was seen on the day of discharge. Denies any new complaints. No chest pain, shortness o f breath, palpitations. DISCHARGE MEDICATIONS: 1. Lantus 10 units q.p.m. 2. Finasteride 5 mg daily. Other home medications were resumed including amlodipine, benazepril 5/40 daily, atenolol 100 mg yamile y, Lipitor 40 mg daily, glimepiride 1 mg daily, potassium chloride 8 mEq daily, terazosin 10 mg daily , and aspirin 81 mg daily. INPATIENT CONSULTANTS: 1. Urology, Dr. Rock. 2. Nephrology, Dr. Porter. DIAGNOSTIC TESTS: Echocardiogram showed ejection fraction 55%-60% with grade 1/3 diastolic dysfuncti on. Renal ultrasound after placement of Rose catheter showed trace bilateral hydronephrosis. Pleas e note that patient had more than 900 mL in the bladder prior to Rose catheter. BRIEF HOSPITAL COURSE: Patient is an 82-year-old with diabetes mellitus type 2, hypertension, and hy perlipidemia who presented to the hospital with abnormal labs. His creatinine was found to be 10.5 w ith BUN 47 and blood sugar of 709. His hemoglobin A1c after admission was 18.7. Please refer to the history and physical dated 01/14/2018 for further details. The patient was admitted to the hospital with diagnosis of acute kidney injury on chronic kidney dise ase stage 2. His postvoid residual was more than 900. For this reason, Rose catheter was placed. He underwent a renal ultrasound. His creatinine has significantly improved. His creatinine on the d ay of discharge is 1.05 with BUN of 8. He was evaluated by Urology and Nephrology. He has been star herber on finasteride per Urology recommendation. He will be discharged home with Rose catheter. He w ill follow up with Dr. Rock next week for a voiding trial. The patient was found to have slightly elevated BNP for which he underwent echocardiogram as discussed above. The patient's blood sugar on admission was 709. His hemoglobin A1c was 18.7. He has been started on long-acting insulin along with glimepiride. His blood sugar on the day of discharge after giving 15 units of Levemir was 143 this morning. Before breakfast was 151. For this reason, he will be disch arged home with low dose Lantus at 10 units at bedtime along with glimepiride. He was extensively co unseled on diabetes by me and dietitian. He stated understanding. He is comfortable with insulin in jections. He also had hypokalemia with potassium 3.1 that has been replaced. I discussed with Nephr zoila, Dr. Porter, who recommended to resume his home dose of benazepril. He will benefit from repeat l abs after 1 week. FINAL DIAGNOSES: 1. Acute kidney injury on chronic kidney disease stage 2 secondary to obstructive uropathy. 2. Uncontrolled diabetes mellitus type 2 with severe hyperglycemia. His hemoglobin A1c was 18.7. 3. Metabolic acidosis, resolved. 4. Hyperkalemia on admission due to renal failure, resolved. 5. Hyponatremia on admission due to hyperglycemia. 6. Slightly elevated ketones. 7. Chronic anemia. 8. Hypokalemia, replaced. 9. Hypertension. 10. Benign prostatic hypertrophy. 11. Hyperlipidemia. Plan of care was discussed with the patient in detail. He stated understanding. The plan was also d iscussed with daughter over the phone. Total time coordinating the discharge of this patient including counseling was 33 minutes.
== END 2018-01-08 12:32 | disposition home health service (06) | DRG 683 ==
LOC: ERS 16:24 → 2NO 23:07
PROVIDERS: ADMIT Internal Medicine; ATTEND Internal Medicine
DX: N17.9 Acute kidney failure, unspecified (principal); E87.2 Acidosis; E11.22 Type 2 diabetes mellitus with diabetic chronic kidney disease; E11.65 Type 2 diabetes mellitus with hyperglycemia; E87.1 Hypo-osmolality and hyponatremia; N39.0 Urinary tract infection, site not specified; E78.5 Hyperlipidemia, unspecified; Z79.84 Long term (current) use of oral hypoglycemic drugs; Z79.82 Long term (current) use of aspirin; I12.9 Hypertensive chronic kidney disease with stage 1 through stage 4 chronic kidney disease, or unspecified chronic kidney disease; N18.2 Chronic kidney disease, stage 2 (mild); E87.5 Hyperkalemia; D64.9 Anemia, unspecified; E87.6 Hypokalemia; N40.1 Benign prostatic hyperplasia with lower urinary tract symptoms; R33.8 Other retention of urine; K59.00 Constipation, unspecified; I45.10 Unspecified right bundle-branch block; N13.9 Obstructive and reflux uropathy, unspecified
CPT/HCPCS: 36415; 36416; 71045; 76770; 80048; 81003; 81015; 82010; 82330; 82553; 82803; 83036; 83690; 83735; 83880; 83930; 84100; 84153; 84484; 85025; 87086; 93005; 93306; 94760; 96360; 96361; A4216; J0360; J1644; J1815

== ENCOUNTER 2018-02-20 12:45 | Outpatient (CLI) | payer MEDICARE ==
--- NOTE | 2018-02-20 15:05 | ULT ---
ULTRASOUND RETROPERITONEUM COMPLETE: (RENAL) 02/20/2018 HISTORY: An 82-year-old male for followup of bilateral hydronephrosis. COMPARISON: 01/05/2018 FINDINGS: The previously demonstrated mild hydronephrosis has resolved. Currently there is no hydronephrosis. The right kidney measures 9.5 x 4.5 x 5.5 cm. The left kidney measures 10 x 5.5 x 4.5 cm. Bilateral renal parenchymal echogenicity and parenchymal thickness are within normal limits. There are a few small bilateral renal cysts, on the order of 1 cm in size each, at least one on the r ight and at least two on the left. The previously demonstrated Rose catheter has been removed from the urinary bladder. There is diffu se, homogeneous thickening of the urinary bladder jenkins. On the pre-void images, the wall thickness is approximately 0.8 cm (8 mm). Pre-void bladder volume is 125 mL. Post-void bladder volume id 30 mL. There is a large, solid mass broadly invaginating the bladder base. This mass is inseparable from th e prostate gland and probably represents prostate enlargement, measuring 7 x 6 x 6 cm. IMPRESSION: 1. Very enlarged prostate gland. 2. Diffuse mural thickening of the urinary bladder, probable sequela of chronic bladder outlet obstr uction. 3. Incomplete voiding. 4. Interval resolution of the previously demonstrated minimal/mild hydronephrosis. 5. A few small bilateral renal cysts. OLIVIA Thomas POS: TARUN
== END 2018-02-20 12:46 | disposition home or self-care (01) ==
LOC: ULT 12:45
PROVIDERS: ATTEND Urology
DX: N13.30 Unspecified hydronephrosis (principal); N28.1 Cyst of kidney, acquired; N40.0 Benign prostatic hyperplasia without lower urinary tract symptoms
CPT/HCPCS: 76770

== ENCOUNTER 2018-12-05 09:31 | Outpatient (CLI) | payer MEDICARE ==
[2018-12-05] MEDS ORDERED: Gadobenate Dimeglumine 529 MG/1 ML (20ML VIAL) ONE (13:24)
--- NOTE | 2018-12-06 09:17 | MRI ---
MRI LUMBAR SPINE WITH AND WITHOUT CONTRAST: Technique: Multiplanar, multisequence MRI images were obtained of the lumbar spine. Indications: Back pain. Lytic lesion involving the L3 vertebra described on CT abdomen, evidence of m etastatic disease. Pancreatic mass with liver mets also described. FINDINGS: There is partial collapse of the L3 vertebra with diffuse abnormal signal and enhancement consistent with neoplastic involvement. Severe central compression of this vertebrae. There is also abnormal signal and enhancement involving the superior portion of the L4 vertebra suspi cious for metastatic involvement. The L4 vertebra maintains height. No other abnormal vertebral body enhancement. No disc abnormality is seen at the T12-L1 or L1-2. L2-3: Mild diffuse disc bulge and facet hypertrophy with mild central canal stenosis. L3-4: More prominent diffuse disc bulge combined with facet hypertrophy results in mild to moderate c entral canal stenosis. L4-5: Broad based disc bulge combined with more pronounced facet and ligamentous hypertrophy results in moderate to severe central canal stenosis. L5-S1: Broad based disc bulging, prominent facet hypertrophy of the thecal sac is congenitally smalle r. Moderate central canal stenosis. Bilateral foraminal stenosis. At the L3 vertebra, there is some paravertebral and soft tissue enhancement involving adjacent psoas muscles. IMPRESSION: 1. Metastatic involvement of the L3 vertebra with central of pathologic fracture. Mild surrounding so ft tissue enhancement. Probable metastatic involvement of the superior aspect of the L4 vertebra as w ell. 2. Degenerative disc changes at multiple levels with disc bulge and posterior hypertrophic changes re sulting in central canal stenosis at several levels as described above. POS: TARUN
== END 2018-12-05 09:32 | disposition home or self-care (01) ==
LOC: MRI 09:31
PROVIDERS: ATTEND Internal Medicine Hematology & Oncology
DX: M84.58XA Pathological fracture in neoplastic disease, other specified site, initial encounter for fracture (principal); C79.51 Secondary malignant neoplasm of bone; C25.2 Malignant neoplasm of tail of pancreas; M48.061 Spinal stenosis, lumbar region without neurogenic claudication; M48.07 Spinal stenosis, lumbosacral region; M51.26 Other intervertebral disc displacement, lumbar region; M51.27 Other intervertebral disc displacement, lumbosacral region; M51.36 Other intervertebral disc degeneration, lumbar region; M51.37 Other intervertebral disc degeneration, lumbosacral region
CPT/HCPCS: 72158; A9579

== ENCOUNTER 2018-12-12 08:57 | Day surgery (SDC) | payer MEDICARE ==
[2018-12-12 09:49] LABS: INR-International Normal Ratio 1.2; PTT 29.8 SEC (22.9-36.1); Prothrombin Time 15.2 SEC (12.0-14.7)
[2018-12-12 14:11] VITALS: BP 148/71; TEMP 97.8
[2018-12-12 14:22] VITALS: BMI 29.9
--- NOTE | 2018-12-12 16:54 | CT ---
CT GUIDED PANCREATIC MASS BIOPSY: 12/12/18 INDICATION: Pancreatic tail mass. PROCEDURE: Informed consent was obtained and the patient was escorted to the Procedural Suite. Patient was place d in a right lateral decubitus position. The skin of the left abdomen was prepped and draped in the s tandard sterile fashion and topical anesthesia was achieved with buffered 1% lidocaine. The patient w as administered conscious sedation by the radiology nurse, Shaye Wood, and was monitored accordin gly throughout the procedure in stable condition. Through a small skin incision, using a 19 gauge tro car, successful placement was performed into the mass of interest located within the pancreatic tail. The inner stylet was removed and was exchanged from 20 gauge biopsy needle. Subsequently 4 separate core specimens of the pancreatic tail mass were performed and placed into sealed formalin container w hich was submitted to pathology for analysis. All devices were removed from the patient. Patient tolerated the procedure well without evidence of c omplication. Postprocedural imaging was performed which revealed no significant, unexpected complicat ion. The patient was then transferred to [facility] and continuously monitored for a period of time until patient was discharged home in stable condition. CONSCIOUS SEDATION: Conscious sedation was performed and patient monitored for 45 minutes. FINDINGS: Pancreatic tail mass. IMPRESSION: Technically successful CT guided biopsy of the pancreatic tail mass. Pathology results are pending. POS: TARUN
== END 2018-12-12 13:20 | disposition home or self-care (01) ==
LOC: CT 08:57
PROVIDERS: ATTEND Internal Medicine Hematology & Oncology
PROC: 0FBG4ZX Excision of Pancreas, Percutaneous Endoscopic Approach, Diagnostic (ICD-10-PCS; principal; 2018-12-12)
DX: C25.2 Malignant neoplasm of tail of pancreas (principal); E78.5 Hyperlipidemia, unspecified; M19.90 Unspecified osteoarthritis, unspecified site; N40.0 Benign prostatic hyperplasia without lower urinary tract symptoms; I12.9 Hypertensive chronic kidney disease with stage 1 through stage 4 chronic kidney disease, or unspecified chronic kidney disease; E11.22 Type 2 diabetes mellitus with diabetic chronic kidney disease; N18.9 Chronic kidney disease, unspecified; N52.9 Male erectile dysfunction, unspecified; Z79.4 Long term (current) use of insulin; Z79.82 Long term (current) use of aspirin; Z79.899 Other long term (current) drug therapy
CPT/HCPCS: 36415; 48102; 77012; 85610; 85730; 88307

== ENCOUNTER 2018-12-26 05:50 | Day surgery (SDC) | payer MEDICARE ==
[2018-12-25 10:47] VITALS: BMI 24.3
[2018-12-26] MEDS ORDERED: Bupivacaine HCl 0.25%/Epi 0.0005/PF 10 ML VIAL FS ONE (06:43)
[2018-12-26] MEDS ORDERED: Lidocaine 2% PF 5 ML VIAL ONE (06:43)
[2018-12-26] MEDS ORDERED: Ketorolac Tromethamine 30 MG/ML VIAL ONE (06:48)
[2018-12-26] MEDS ORDERED: Fentanyl 100 MCG/2 ML VIAL ONE (06:48)
--- NOTE | 2018-12-26 09:22 | RAD ---
PORTABLE CHEST: HISTORY: MediPort placement. COMPARISON: 01/04/2018 study. FINDINGS: Left-sided MediPort catheter has been placed. The catheter tip overlies the proximal superior vena c carlo. There are no signs of pneumothorax. Elevation of the right hemidiaphragm is again noted. Ther e is what appears to be eventration to the left hemidiaphragm. IMPRESSION: Placement of a left-sided MediPort catheter. No signs of pneumothorax. POS: TPC
[2018-12-26] MEDS ORDERED: PROPOFOL 200 MG/20 ML VIAL ONE (10:13)
--- NOTE | 2018-12-27 15:12 | OP ---
DATE OF PROCEDURE: 12/26/2018 PROCEDURE PERFORMED: Left subclavian MediPort. PREOPERATIVE DIAGNOSIS: Pancreatic cancer. POSTOPERATIVE DIAGNOSIS: Pancreatic cancer. HISTORY: Mr. Smith is an 83-year-old man with pancreatic cancer, who requires chemotherapy. MediPort has been requested for this. DESCRIPTION OF PROCEDURE: After informed consent was obtained and appropriate preoperative antibiotics administered, the patient was taken to the operating room. He was placed in supine position and anesthesia was administered. He was prepped and draped in a standard sterile fashion and placed in Trendelenburg. The left subclavian vein was accessed under the usual approach easily with excellent flow of dark venous nonpulsatile blood. A wire was threaded and was confirmed to be in the superior vena cava. The skin incision was extended laterally and a pocket created. A MediPort was placed within the pocket and secured to the pectoralis fascia. A dilator and sheath were placed over the wire and the dilator and wire were removed, leaving the sheath in place. The MediPort tubing was clamped at the distal end and the tubing passed through the sheath, which was split and removed leaving the tubing in place. This was pulled back until it was in appropriate position in the superior vena cava. It was then clamped at the level of the skin, connected to the MediPort hub and aspirated and flushed without difficulty. The subcutaneous tissues were reapproximated with 3-0 Monocryl suture and the skin was closed with 4-0 subcuticular Monocryl suture. Dermabond dressings were placed and the patient was taken to Recovery in good condition. Estimated blood loss is minimal. There were no complications. There were no specimens. Job ID: [id number]
== END 2018-12-26 09:55 | disposition home or self-care (01) ==
LOC: SDC 05:50
PROVIDERS: ATTEND Surgery
PROC: 0JH63WZ Insertion of Totally Implantable Vascular Access Device into Chest Subcutaneous Tissue and Fascia, Percutaneous Approach (ICD-10-PCS; principal; 2018-12-26)
DX: C25.9 Malignant neoplasm of pancreas, unspecified (principal); C78.7 Secondary malignant neoplasm of liver and intrahepatic bile duct; C79.51 Secondary malignant neoplasm of bone; E11.9 Type 2 diabetes mellitus without complications; M19.90 Unspecified osteoarthritis, unspecified site; E78.5 Hyperlipidemia, unspecified; I10 Essential (primary) hypertension; N40.0 Benign prostatic hyperplasia without lower urinary tract symptoms; Z79.4 Long term (current) use of insulin; Z79.899 Other long term (current) drug therapy
CPT/HCPCS: 36561; 71045; 82962; C1788; 36416; J0131; J1642; J1885; J2001; J2704; J3010

== ENCOUNTER 2019-01-18 14:37 | Inpatient (IN) | payer MEDICARE ==
--- NOTE | 2019-01-18 16:05 | RAD ---
FRONTAL VIEW CHEST: Comparison: 12-26-18 Indication: Shortness of breath FINDINGS: There is shallow depth of inspiration. Patchy bilateral perihilar opacity present. Elevation of each hemidiaphragm. Cardiac silhouette is accentuated. Chest is otherwise similar to 12-26-18. IMPRESSION: Shallow depth of inspiration with prominent bilateral perihilar regions. The possibility of vascular congestion from edema versus pneumonitis should be considered. Bilateral perihilar fullness related t o adenopathy is also a consideration. POS: TARUN
[2019-01-18 16:54] LABS: Hemoglobin 11.5 g/dL (14.0-18.0); Mean Corpuscular HGB CONC 30.3 g/dL (32.0-36.0); Mean Corpuscular Hemoglobin 27.3 pg (27.0-31.0); Mean Corpuscular Volume 90.2 fL (78.0-98.0); Mean Platelet Volume 11.6 fL (7.4-10.4); Platelet Count 89 thou/uL (130-400); RBC Distribution Width 13.7 % (11.5-14.5); Red Blood Cell (RBC) Count 4.22 mill/uL (4.70-6.10); White Blood Cell (WBC) Count 22.2 thou/uL (4.8-10.8)
[2019-01-18 17:07] LABS: ALT (SGPT) 184 U/L (8-55); AST (SGOT) 151 U/L (5-34); Alkaline Phosphatase 607 U/L (40-150); Anion Gap 24 mmol/L (10-20); Bilirubin, Total 1.1 mg/dL (0.2-1.2); Calc. Creatinine Clearance 0 mL/min (70-130); Calcium 11.7 mg/dL (7.8-10.44); Carbon Dioxide 20 mmol/L (23-31); Chloride 111 mmol/L (98-107); Estimated GFR-MDRD 16; Globulin 4.3 g/dL (2.4-3.5); Glucose 521 mg/dL (83-110); Potassium 5.5 mmol/L (3.5-5.1); Protein, Total 7.3 g/dL (5.8-8.1); Sodium 149 mmol/L (136-145)
[2019-01-18] MEDS ORDERED: Piperacillin/Tazobactam 4.5 GM VIAL ONE (17:08)
[2019-01-18 17:09] LABS: Band 11 % (5-11); Burr Cells SLIGHT = 2-5 cells (100X) (0-1/hpf); Eosinophils 1 % (0-10); MDiff Complete? YES; Monocytes 2 % (0-10); Neutrophil 86 % (42-75); Platelet Morphology Comment Appears Decreased; Polychromasia SLIGHT = 2-3 cells (100X) (0-2/hpf); Schistocytes SLIGHT = 2-5 cells (100X) (0-1/hpf)
--- NOTE | 2019-01-18 17:15 | CT ---
HEAD CT WITHOUT CONTRAST: 01/18/19 HISTORY: Altered mental status. COMPARISON: None. FINDINGS: No parenchymal hemorrhage. No extra-axial hematoma. No midline shift. Basilar cisterns are patent. Br ain volume is age appropriate. Cortical arteaga-white matter differentiation is preserved. IMPRESSION: No evidence of hydrocephalus. Calvarium is intact. Adequate aeration of the sinuses and mastoid air c ells. There is cavernous carotid atherosclerosis. IMPRESSION: No acute intracranial process. POS: ADAM
[2019-01-18 17:20] LABS: BUN (Urea Nitrogen) 125 mg/dL (8.4-25.7)
[2019-01-18 17:22] LABS: Bilirubin Moderate (Negative); Blood, Urine Large (Negative); Clarity TURBID (Clear); Glucose, Urine (Dipstick) 100 mg/dL (Negative); Leukocyte Small (Negative); Nitrite Negative (Negative); Protein, Urine (Dipstick) 30 mg/dL (Neg-Trace); Specific Gravity, Urine 1.023 (1.002-1.036)
[2019-01-18 17:29] LABS: Pathc Cast-AUWi Flag 12.03 (0-2.49); Yeast-AUWi Flag 267.6 (0-25.0)
[2019-01-18 17:36] LABS: RBC/HPF GREATER THAN 50-TNTC HPF (0-3)
[2019-01-18 17:37] LABS: Bacteria/HPF Rare-Few HPF (None Seen); Hyaline Casts/LPF 0-3 HYALINE CAST LPF (0-3 Hyaline); Other Casts/LPF None Seen LPF (0-3 Hyaline)
[2019-01-18 17:38] LABS: Yeast-All Forms None Seen HPF (None Seen)
[2019-01-18 17:39] LABS: CKMB 7.9 ng/mL (0-6.6)
[2019-01-18 18:53] LABS: Glucose 492 mg/dL (83-110)
[2019-01-18] MEDS ORDERED: Insulin Regular 300 UNITS/3 ML VIAL ONE ×2 (19:12→21:11)
[2019-01-18 20:53] LABS: Lactic Acid 2.3 mmol/L (0.5-2.2)
[2019-01-18 21:07] LABS: Critical Call Chem Troponin I DECREASED
[2019-01-18 21:25] LABS: CKMB 5.2 ng/mL (0-6.6)
--- NOTE | 2019-01-18 21:26 | CT ---
CT CHEST WITHOUT CONTRAST CT ABDOMEN WITHOUT CONTRAST CT PELVIS WITHOUT CONTRAST 01/18/19 HISTORY: Cancer. Abdominal tenderness. COMPARISON: Radiograph same day. FINDINGS: There is focal consolidation in the left lung base increasing to 11/29/18 examination. No pericardial e ffusion. No pleural fluid. There is also some atelectatic changes right lung base. Thyroid is unremarkable. The hypodensities of the liver are increased in size from the comparison examination, although direct correlation is limited due to the lack of intravenous contrast. There appears to be a hypodensity he patic segment 8 at the dome measuring 3.2 cm, previously 1.7 cm. Pancreatic tail mass is similar. Aortoiliac contour is unremarkable. Rose catheter is in place altho ugh the urinary bladder is not completely decompressed. Moderate volume stool within the rectum. Sigmoid colon is not dilated. No hydronephrosis. Diffuse lytic metastatic foci throughout the visualized skeleton. There is rehana irvnig fracture of L3, pathologic, which has progressed from the 11/21/18 CT study. The lytic foci thro ughout the skeleton is markedly progressed from the 11/21/18 CT examination. Lytic foci involves the ilium, spine, ribs, pelvis. IMPRESSION: 1. Although limited without intravenous contrast, the hepatic metastatic disease and osseous met astatic disease has severely progressed. 2. L3 pathologic compression fracture. Approximately 20-30% loss of height. 3. Pathologic left lateral seventh rib fracture with one half shaft width displacement. 4. Large lytic focus within the anterior T5 vertebra is at risk for compression fracture as well as the T10 vertebra and L1 vertebra. 5. Similar appearance of the pancreatic tail mass. 6. Focal consolidation left lung base concerning for infection or aspiration. Code T POS: TARUN
--- NOTE | 2019-01-18 21:46 | HP ---
PRIMARY CARE PHYSICIAN: Dr. Kathrin Gaxiola. CHIEF COMPLAINT: Altered mental status and poor p.o. intake. HISTORY OF PRESENT ILLNESS: Mr. Smith is an 83-year-old male with past medical history of hypertension, diabetes type 2, hyperlipidemia, and BPH, recently diagnosed with metastatic pancreatic cancer, who presents to the emergency department for altered mental status and decreased p.o. intake for one week. The patient's oncologist is Dr. Barragan. The patient's biological sciences instructor is Dr. Porter. Per daughters who were present at bedside, the patient completed his last round of radiation therapy around and since then he has been declining. The patient was supposed to get palliative chemotherapy. The patient had poor p.o. intake and has not been taking his medications as well. Family was concerned and so they brought the patient to the ER. He denies any history of heart failure. The patient unable to provide any history because of his altered mental status at this point. In the ER, the patient was given insulin 10 units, normal saline bolus 2 L, vancomycin, and Zosyn. PAST MEDICAL HISTORY: Diabetes, hyperlipidemia, hypertension, BPH, and pancreatic cancer. PAST SURGICAL HISTORY: No known past surgical history. SOCIAL HISTORY: No known history of alcoholism, drugs, or smoking. FAMILY HISTORY: Reviewed with the family and able to provide accurate information. REVIEW OF SYSTEMS: Unable to perform due to the patient's altered mental status. CURRENT MEDICATIONS: Atenolol, glimepiride, terazosin, potassium chloride, atorvastatin, amlodipine, and benazepril. PHYSICAL EXAMINATION: VITAL SIGNS: Blood pressure 87/33, pulse 95, respiration rate 20, O2 saturation 98% on room air. HEENT: Head appears to be atraumatic. EYES: Extraocular movement intact. Ears and nose, no bleeding noted. Mouth, no exudate noted. NECK: No lymphadenopathy noted. CARDIOVASCULAR: Regular rate and rhythm. No murmurs, rubs, or gallops noted. RESPIRATORY: Clear bilaterally. No wheezes or rubs noted. GI: BS hypoactive, generalized tenderness, soft non distended EXTREMITIES: Lower extremity, no edema noted. NEURO: The patient is drowsy. He will respond to his name, but then will go down to sleep again. Will not follow commands at this point. Unable to perform a complete neuro examination as the patient was not cooperative. SKIN: No rashes noted. GENERAL: Overall, the patient appears to be cachectic at this point. DIAGNOSTIC STUDIES: Chest x-ray prominent bilateral peripheral region, possibly of vascular congestion for edema versus pneumonitis should be considered. Bilateral peripheral fullness related to adenopathy is also a consideration. CT of the brain negative for acute abnormalities. LABORATORY DATA: White blood cell count 22, hemoglobin 11.5, hematocrit 38, platelets 89. Chemistry; sodium 149, potassium 5.5, chloride 111, carbon dioxide 20, anion gap 24, BUN 125, creatinine 4.25, glucose 492. Lactic acid 2.2. Bilirubin 1.1, AST 151, ALT 184, and alkaline phosphatase 607. CK-MB 7.9. Troponin 0.335. BNP 58. Urinalysis was negative for ketones, but positive for protein, large blood, nitrate is negative, bilirubin positive, leukocyte esterase small amount. Beta hydroxybutyrate 0.85. ASSESSMENT: 1. Diabetic ketoacidosis. 2. Acute kidney injury, likely acute tubular necrosis from dehydration. 3. Hyperkalemia. 4. Altered mental status. 5. Uremia. 6. NSTEMI, likely form acute kidney injury .. 7. Thrombocytopenia, platelets 89. 8. Metastatic pancreatic cancer. The patient is status post radiation therapy. Follows up with Dr. Barragan. 9. Leukocytosis. 10. Transaminitis PLAN: 1. The patient's altered mental status likely multifactorial from his severe uremia and possible DKA as well at this point. Given the patient's blood glucose is elevated and his anion gap is positive along with beta hydroxybutyrate being positive, we will treat the patient as DKA at this point. We will start patient on DKA protocol which includes fluids, insulin, and checking BMP regularly. We will keep the patient n.p.o. at this point. 2. Acute kidney injury. I did consult the patient's biological sciences instructor, Dr. Porter. We will continue IV fluids at this point. Limit nephrotoxic agent at this point. Dose meds per pharm 3. We will continue with IV fluids. We will give another bolus of fluids at this point. 4. Hyperkalemia, likely due to KHALIF. We will continue with fluids and trend labs. 5. Altered mental status. CT head negative. Likely, his mental status altered because of his current metabolic acidosis. Continue treatment as mentioned above. PT/OT and speech therapy consulted. We will keep the patient n.p.o. at this point. ABG ordered 6. We will dose medication renally. 7. The patient appeared to be septic on admission. unknown infection. Pt was given Vanc and Zosyn in the ED. The patient's blood pressure is holding normal. We will continue with fluids at this point. However, the patient is very sick and overall prognosis does not appear to be very good. I spoke to the patient's daughters who are medical power of civil attorney and they want everything to be done for the patient. The patient is a full code. 8. SCDs. We will only do SCDs at this point because of thrombocytopenia. 9. The patient's overall prognosis is very poor at this point. 10. For elevated troponin, I have consulted Cardiology. I think the patient's elevated troponin is likely due to demand ischemia and possibly his overall sepsis vs cancer burden We will trend troponin at this point. 11. Metastatic pancreatic cancer. The patient follows up with Dr. Barragan. The patient is status post radiation therapy at this point. We will obtain a CT of his chest, abdomen and pelvis as the patient was noted to be tender on the abdominal examination. 12. ICU admit and the soil fertility extension specialist consulted and already informed for admission. Job ID: [id number] MTDD
[2019-01-18] MEDS ORDERED: Dextrose 5 % And 0.9 % NaCl 1,000 ML IV SCH (22:00)
[2019-01-18] MEDS ORDERED: CCU Electrolyte Replacement 1 EACH IVPB SCH (22:19)
[2019-01-18] MEDS ORDERED: Ondansetron PF 4 MG/2 ML Vial IVP PRN (22:19)
[2019-01-18] MEDS ORDERED: D5 1/2 NS w/20 mEq KCL 1,000 ML IV PRN (22:19)
[2019-01-18] MEDS ORDERED: Sodium Chloride 0.9% 1,000 ML IV PRN ×4 (22:19)
[2019-01-18] MEDS ORDERED: Dextrose 5 %-0.45 % NaCl 1,000 ML IV PRN (22:19)
[2019-01-18] MEDS ORDERED: SODIUM CHLORIDE 0.45% IV SCH (22:19)
[2019-01-18] MEDS ORDERED: NS 0.9% w/ 20 MEQ KCL 1,000 ML IV PRN ×2 (22:19)
[2019-01-18] MEDS ORDERED: CCU ELECTROLYTE REPLACEMENT PROTOCOL FS PRN (22:31)
[2019-01-18] MEDS ORDERED: Potassium Phosphate 15 MMOL in Sodium Chloride 0.9% 250 ML 250 ML IV PRN (22:31)
[2019-01-18] MEDS ORDERED: Potassium Chloride 40 MEQ in Sodium Chloride 0.9% 250 ML 250 ML IVPB PRN (22:31)
[2019-01-18] MEDS ORDERED: Potassium Phosphate 9 MMOL in Sodium Chloride 0.9% 100 ML IVPB PRN (22:31)
[2019-01-18] MEDS ORDERED: Magnesium Oxide 400 MG TAB PO PRN ×2 (22:31)
[2019-01-18] MEDS ORDERED: Potassium Chloride 40 MEQ in Premix Bag 1 BAG IVPB PRN (22:31)
[2019-01-18] MEDS ORDERED: Potassium Phosphate 12 MMOL in Sodium Chloride 0.9% 250 ML 250 ML IV PRN (22:31)
[2019-01-18] MEDS ORDERED: Magnesium 2 GM/NS 0.9% 100 ML 2 GM in Premix Bag 1 BAG IVPB PRN (22:31)
[2019-01-18] MEDS ORDERED: Potassium Chloride 20 MEQ TAB PO PRN (22:31)
[2019-01-18 23:04] LABS: Anion Gap 20 mmol/L (10-20); Calc. Creatinine Clearance 13 mL/min (70-130); Calcium 10.5 mg/dL (7.8-10.44); Carbon Dioxide 20 mmol/L (23-31); Chloride 117 mmol/L (98-107); Estimated GFR-MDRD 16; Glucose 380 mg/dL (83-110); Magnesium 2.3 mg/dL (1.6-2.6); Potassium 4.5 mmol/L (3.5-5.1); Sodium 152 mmol/L (136-145)
[2019-01-18 23:15] LABS: BUN (Urea Nitrogen) 125 mg/dL (8.4-25.7)
[2019-01-18 23:26] LABS: Actual Bicarbonate (HCO3a) 18.5 mEq/L (22-28); Base Excess (BEa) -5.9 mEq/L (-2.0 to +3.0); CO2 Tension 32.8 mmHg (35.0-45.0); Calcium, Ionized 1.44 mmol/L (1.12-1.30); Carboxyhemoglobin (COHb) 1.1 gm% (0.0-3.0); Hemoglobin (Hb) 10.1 g/dL (14.0-18.0); Potassium - ABG Lab 4.37 mmol/L (3.70-5.30); pH, Arterial 7.37 (7.35-7.45)
[2019-01-18 23:27] LABS: O2 Tension (PaO2) 58.5 mmHg (> 60.0); Puncture Site LRA
[2019-01-18] MEDS: HUMULIN R 100 UNITS in Sodium Chloride 0.9% 100 ML IVPB SCH (23:36)
[2019-01-19] MEDS: Piperacillin/Tazobactam 2.25 GM in Sodium Chloride 0.9% 100 ML IVPB SCH ×3 (01:51→18:08)
[2019-01-19 02:00] LABS: Bilirubin Large (Negative); Blood, Urine Large (Negative); Clarity TURBID (Clear); Glucose, Urine (Dipstick) 100 mg/dL (Negative); Leukocyte Large (Negative); Nitrite Positive (Negative); Protein, Urine (Dipstick) 100 mg/dL (Neg-Trace)
[2019-01-19 02:03] LABS: RBC/HPF GREATER THAN 50-TNTC HPF (0-3)
[2019-01-19 02:18] LABS: Anion Gap 19 mmol/L (10-20); Calc. Creatinine Clearance 14 mL/min (70-130); Calcium 10.4 mg/dL (7.8-10.44); Carbon Dioxide 20 mmol/L (23-31); Chloride 118 mmol/L (98-107); Estimated GFR-MDRD 18; Glucose 363 mg/dL (83-110); Potassium 3.7 mmol/L (3.5-5.1); Sodium 153 mmol/L (136-145)
[2019-01-19 02:19] LABS: Bacteria/HPF 1+ HPF (None Seen)
[2019-01-19 02:20] LABS: Hyaline Casts/LPF 0-3 HYALINE CAST LPF (0-3 Hyaline); Other Casts/LPF None Seen LPF (0-3 Hyaline); Oval Fat Bodies/HPF None Seen HPF (None Seen); Renal Epithelial 0-3 HPF (0-3); Sperm/HPF None Seen HPF (None Seen); Transitional Epithelial NONE SEEN HPF (0-3); Trichomonas/HPF None Seen HPF (None Seen); Yeast-All Forms None Seen HPF (None Seen)
--- NOTE | 2019-01-19 02:20 | CON ---
DATE OF CONSULTATION: 01/18/2019 HISTORY OF PRESENT ILLNESS: Mr. Smith is an 83-year-old black male with known history of metastatic pancreatic cancer, type 2 diabetes mellitus, hypertension, BPH, and previously seen by [facility]al Service about a year ago for an acute kidney injury that was hemodynamically-mediated renal dysfunction. He came in today with altered mental status. According to the daughter, the patient has been having poor p.o. intake. He recently had a Port-A-Cath placed. He has also had palliative radiation therapy for his metastatic bone lesions. He is scheduled for palliative chemotherapy next week. However, due to the worsening condition, he was brought to the ER. During the initial evaluation, he was noted to have elevated creatinine more than 4 mg% with a baseline of about 1.4 mg%. We are now being consulted for further management of his acute kidney injury. REVIEW OF SYSTEMS: Decreased mentation. Decreased appetite. No nausea. No diarrhea. No occasional abdominal pain. Positive for chronic back pain. No headache. No diplopia. No dysuria. No urinary frequency. PAST MEDICAL HISTORY: Pancreatic cancer with metastatic lesion, history of BPH, type 2 diabetes mellitus, hyperlipidemia, status post acute kidney injury, hypertension, and BPH. PAST SURGICAL HISTORY: Status post biopsy of pancreas. The patient is status post Port-A-Cath placement. ALLERGIES: NONE. TRAUMA: None. IMMUNIZATION: Up-to-date. HOSPITALIZATIONS: Please see past medical history. FAMILY HISTORY: No family history of ESRD. SOCIAL HISTORY: The patient lives in [place], lives with his child. He has 6 children, originally from [place]. Single. No alcohol intake. No drug abuse. No blood transfusion. Education, 8th grade. 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 PHYSICAL EXAMINATION: VITAL SIGNS: Blood pressure 90/70, heart rate 70. GENERAL: The patient is confused, not in overt distress. SKIN: Decreased turgor. HEENT: He has a slightly pale conjunctivae. Anicteric sclerae. NECK: No neck mass. No carotid bruits. No JVD. CHEST: No deformities. LUNGS: Decreased breath sounds. HEART: Normal sinus rhythm. No murmurs, gallops, or rubs. ABDOMEN: Globular, soft, nontender. No masses. EXTREMITIES: No edema. No deformities. MEDICATIONS: Currently on D5 of 0.9%, normal saline at 125 mL/hour. Home medications included: 1. Terazosin 10 mg at bedtime. 2. KCl 8 mEq once a day. 3. Insulin glargine 20 units subcu q.p.m. 4. Glimepiride 1 mg daily. 5. Finasteride 5 mg daily. 6. Atorvastatin 40 mg daily. 7. Atenolol 100 mg p.o. daily. 8. Amlodipine/benazepril one tab daily. LABORATORY DATA: January 18, 2019; white count 22.2, hemoglobin 11.5. Glucose Sodium 149, potassium 5.5, chloride 111, carbon dioxide 20, BUN 125, creatinine 4.27, GFR 60 mL/minute, calcium 11.7, AST 151, ALT 184, alkaline phosphatase 607. Chest x-ray, increased lung markings. CT scan of the abdomen and pelvis-pancreatic lesion noted. ASSESSMENT AND PLAN: 1. Acute kidney injury-I suspect a hemodynamically-mediated renal dysfunction. Please note, the patient has history of poor p.o. intake and fluid intake. In addition, he has been on amlodipine with benazepril. Benazepril is an KEATON inhibitor, which may aggravate the kidney function in a background of volume depletion. Continue to hydrate the patient. Hold off benazepril. There is no indication for any dialytic intervention tonight. I did discuss the case with the daughter and I explained to the daughter that due to his multiple medical problems and terminal cancer, he is not a candidate for dialytic intervention. 2. Consider doing urinalysis just to rule out any acute tubular necrosis with this patient. 3. Pancreatic cancer with metastasis to bones. Continue palliative care. Consider hospice placement. Job ID: [id number]
[2019-01-19 02:29] LABS: BUN (Urea Nitrogen) 118 mg/dL (8.4-25.7)
[2019-01-19 02:41] LABS: Creatinine, Urine 73.77 mg/dL (63-166)
[2019-01-19] MEDS: D5 1/2 NS w/20 mEq KCL 1,000 ML IV PRN ×3 (03:06→09:17)
[2019-01-19 04:34] LABS: ALT (SGPT) 157 U/L (8-55); AST (SGOT) 130 U/L (5-34); Albumin 2.6 g/dL (3.4-4.8); Alkaline Phosphatase 541 U/L (40-150); Anion Gap 18 mmol/L (10-20); BUN (Urea Nitrogen) 121 mg/dL (8.4-25.7); Bilirubin, Total 1.1 mg/dL (0.2-1.2); Calc. Creatinine Clearance 15 mL/min (70-130); Calcium 10.5 mg/dL (7.8-10.44); Carbon Dioxide 20 mmol/L (23-31); Chloride 120 mmol/L (98-107); Estimated GFR-MDRD 20; Globulin 3.7 g/dL (2.4-3.5); Glucose 248 mg/dL (83-110); Potassium 3.6 mmol/L (3.5-5.1); Protein, Total 6.3 g/dL (5.8-8.1); Sodium 154 mmol/L (136-145)
[2019-01-19 04:44] LABS: Band 9 % (5-11); Eosinophils 3 % (0-10); Hemoglobin 9.6 g/dL (14.0-18.0); Lymphocytes 4 % (21-51); MDiff Complete? YES; Mean Corpuscular HGB CONC 31.2 g/dL (32.0-36.0); Mean Corpuscular Hemoglobin 27.9 pg (27.0-31.0); Mean Corpuscular Volume 89.4 fL (78.0-98.0); Mean Platelet Volume 10.7 fL (7.4-10.4); Monocytes 5 % (0-10); Neutrophil 79 % (42-75); Platelet Count 70 thou/uL (130-400); Platelet Morphology Comment Appears Decreased; RBC Distribution Width 13.6 % (11.5-14.5); Red Blood Cell (RBC) Count 3.44 mill/uL (4.70-6.10); White Blood Cell (WBC) Count 17.5 thou/uL (4.8-10.8)
[2019-01-19] MEDS: HUMULIN R 100 UNITS in Sodium Chloride 0.9% 100 ML IVPB SCH (06:21)
[2019-01-19 06:28] LABS: Anion Gap 16 mmol/L (10-20); BUN (Urea Nitrogen) 113 mg/dL (8.4-25.7); Calc. Creatinine Clearance 16 mL/min (70-130); Calcium 10.6 mg/dL (7.8-10.44); Carbon Dioxide 22 mmol/L (23-31); Chloride 121 mmol/L (98-107); Estimated GFR-MDRD 21; Glucose 124 mg/dL (83-110); Potassium 3.7 mmol/L (3.5-5.1); Sodium 155 mmol/L (136-145)
--- NOTE | 2019-01-19 09:39 | CON ---
DATE OF CONSULTATION: 01/19/2019 CONSULTING PHYSICIAN: Dr. Sky from [facility]. REASON FOR CONSULTATION: Acidosis and renal failure. HISTORY OF PRESENT ILLNESS: The patient is an 83-year-old male, who has been diagnosed with metastatic pancreatic cancer with hepatic and osseous metastasis. My understanding is he has been receiving radiation therapy to the abdomen, which was completed around January 10. I am not sure about previous chemotherapy use, but the patient does have a MediPort in his left chest. He was brought in yesterday with altered mental status for about 1 week prior to admission. He has not been eating or drinking. He was found to have profoundly elevated blood sugar and was also in some degree of acidosis. This morning, he is awake and alert. He complains of abdominal pain, but does not appear to be in any distress. PAST MEDICAL HISTORY: 1. Diabetes mellitus. 2. Hyperlipidemia. 3. Hypertension. 4. Prostatic hypertrophy. 5. Pancreatic cancer. PAST SURGICAL HISTORY: MediPort placement. SOCIAL HISTORY: Nonsmoker. Not consume alcohol. FAMILY MEDICAL HISTORY: Unremarkable. MEDICATIONS: Prior to admission: 1. Atenolol. 2. Glimepiride. 3. Terazosin. 4. Potassium chloride. 5. Atorvastatin. 6. Amlodipine. 7. Benazepril. REVIEW OF SYSTEMS: Remarkable for abdominal pain, weight loss. Otherwise, 12-point review of systems is negative. PHYSICAL EXAMINATION: VITAL SIGNS: Temperature 97.8, pulse 92, blood pressure 113/62, O2 saturation 100%, and respiratory rate 24. Intake since admission 1983, output 680. HEENT: Remarkable for slightly icteric sclera. Oropharynx, he has dry tongue with some hemorrhagic areas over the tip of tongue. NECK: No adenopathy, JVD, or bruits. LUNGS: Clear to auscultation without wheezing or rhonchi. CARDIAC: S1 and S2 regular without audible murmur. ABDOMEN: Distended, somewhat tender to palpation in mid-epigastric region. EXTREMITIES: No clubbing, cyanosis, or edema. NEUROLOGIC: He has 4+/5 strength of his upper extremities. I would characterize his lower extremity strength is 2+/5. LABORATORY DATA: White blood cell count 17.5, hematocrit 30.7, platelet count 70. ABG; pH 7.37, pCO2 of 32, pO2 of 58, that was last night. Sodium 155, potassium 3.7, chloride 121, CO2 of 22, BUN 113, creatinine 3.3, glucose 124, calcium 10.6. AST 130, ALT 157, total bilirubin 1.1. Urinalysis showed bku-[id number]-count red blood cells and 11 to 20 white blood cells. Beta hydroxybutyrate 0.85. Lactate was 2.3. DIAGNOSTIC DATA: CT of the abdomen, chest, and pelvis revealed hepatic metastatic disease, bone metastasis to L3, the left lateral 7th rib, the anterior T5 vertebra, T10 vertebra, and L1 vertebra. There was a pancreatic tail mass. There was also focal consolidation in the left lung base. Chest x-ray shows slight blurring of the left diaphragm. MediPort is in good position. ASSESSMENT: 1. The patient is probably suffering from starvation ketosis and probably not diabetic ketoacidosis. 2. 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 3. Acute renal failure. 4. [id number]-HC-[id number] elevation myocardial infarction. 5. Transaminitis from hepatic metastasis. RECOMMENDATIONS: 1. I would get the patient's Oncology Service involved as it sounds like his prognosis is dismal. 2. Consider converting over to sliding scale insulin since I do not believe he is any longer in DKA. 3. Continue hydration. 4. Agree with continued antibiotic coverage for possible pneumonitis. No other Pulmonary/Critical Care recommendations at this time. TIME SPENT: Above encompassed 70 minutes time, of that time, greater than 50% was spent with the patient and/or the patient's unit in the hospital. Job ID: [id number]
--- NOTE | 2019-01-19 11:15 | CON ---
DATE OF CONSULTATION: 01/19/2019 REASON FOR CONSULTATION: Positive troponins. HISTORY OF PRESENT ILLNESS: Mr. Smith is an 83-year-old gentleman, who comes to the hospital for altered mentation. He has metastatic pancreatic cancer with hepatic and osseous mets. He has received radiation to his abdomen in the recent past. He was diagnosed in October. He has been altered for the last week, not eating or drinking. Blood sugars were extremely high and was acidotic. He had several different blood work done and troponin was mildly high, so Cardiology is being consulted. I cannot get any significant history from him. PAST MEDICAL HISTORY: 1. Type 2 diabetes. 2. Hyperlipidemia. 3. Hypertension. 4. BPH. 5. Pancreatic cancer. PAST SURGICAL HISTORY: MediPort placement. SOCIAL HISTORY: Per chart review; no alcohol, tobacco, or drugs. FAMILY HISTORY: Noncontributory. OUTPATIENT MEDICATIONS: 1. Compazine 10 mg q.6 h. p.r.n. 2. [place] p.r.n. 3. Lasix 20 mg a day. 4. Proscar 5 mg a day. 5. Lipitor 40 mg a day. 6. Atenolol 100 mg a day. 7. Amlodipine and benazepril. 8. Amaryl. 9. Terazosin. 10. Potassium chloride 8 mEq a day. ALLERGIES: NO KNOWN DRUG ALLERGIES. REVIEW OF SYSTEMS: A 12-point review of systems was done and was all negative unless stated in history of present illness. PHYSICAL EXAMINATION: VITAL SIGNS: Temperature 97.8, pulse 93, respiratory rate 23, saturating 97% on room air, and blood pressure 116/58. GENERAL: Somnolent. Nonverbal. HEENT: Normocephalic and atraumatic. NECK: Supple. LUNGS: Coarse breath sounds bilaterally. CARDIOVASCULAR: S1 and S2. No S3 or S4. No murmurs. ABDOMEN: Tender to palpation diffusely. Difficult to assess rebound or guarding. EXTREMITIES: No edema. SKIN: Warm and dry. LABORATORY DATA: Laboratory work was reviewed. CBC with a white count of 17, hemoglobin 9.6, hematocrit 30, and platelet count of 70. ABG was reviewed. Chemistry; BUN 113, creatinine 3.3, GFR of 21, and calcium 10.6. Troponin was 0.32 and then 0.40. Lactic acid was 2.3. UA was positive with positive nitrites, large bilirubin, greater than 50 white cells, and greater than 50 red cells. Beta hydroxybutyrate is elevated as well. ASSESSMENT AND PLAN: 1. Elevated troponin. Likely demand ischemia from current process. 2. Metabolic acidosis. 3. Acute renal insufficiency. 4. Metastatic pancreatic cancer. PLAN: 1. We will get an echocardiogram to assess LV function. 2. I would not anticoagulate at this time given his low platelets and this being a demand ischemia. 3. We will follow. Further recommendations per results of echo. Job ID: [id number]
--- NOTE | 2019-01-19 11:53 | PRG ---
DATE OF SERVICE: 01/19/2019 SUBJECTIVE: Mr. Smith is an 83-year-old black male with known history of pancreatic cancer with metastasis to the bones and was seen by the renal service due to his acute kidney injury. At that time, I felt that he had an acute kidney injury that was hemodynamically-mediated renal dysfunction. He was given volume repletion. His creatinine is improved from 4.31 to a most recent value of 3.64. He is also noted to be mildly hypernatremic. His most recent blood sugar is now 192. No other complaints. He is more awake. OBJECTIVE: VITAL SIGNS: Blood pressure 108/59, heart rate 91, respiratory rate 24, pulse oximetry 98%, and temperature 97.4. GENERAL: Awake, alert, and comfortable. SKIN: Adequate turgor. HEENT: Slightly pale conjunctivae. Anicteric sclerae. NECK: No neck mass. No carotid bruits. No JVD. CHEST: No deformities. LUNGS: Clear breath sounds. No wheezing. No crackles. HEART: Normal sinus rhythm. No murmur. No gallops. No rubs. ABDOMEN: Globular, soft, and nontender. No masses. EXTREMITIES: No edema. No deformities. MEDICATIONS: Medications of January 19, 2019, reviewed. LABORATORY DATA: Laboratories of January 19, 2019; white count 17.5 and hemoglobin 9.6. Sodium 154, potassium 3.6, chloride 120, carbon dioxide 20, BUN 121, creatinine 3.64, AST 130, ALT 157, and albumin 2.6. ASSESSMENT AND PLAN: 1. Acute kidney injury on top of chronic renal failure, slowly improving renal function. Continue IV hydration. Due to the mild hypernatremia, we will change IV fluid to D5 half-normal saline at 125 mL/hour. The D5 will be continued until he gets tapered off from his insulin drip. There is no indication for any dialytic intervention. 2. Pancreatic cancer with metastasis. The daughter has agreed to place the patient DNR. Job ID: [id number]
[2019-01-19] MEDS: Dextrose 5 %-0.45 % NaCl 1,000 ML IV SCH ×2 (12:59→21:35)
--- NOTE | 2019-01-19 14:20 | PDOC.PN ---
- Subjective Encounter Start Date: 01/19/19 Encounter Start Time: 14:18 Patient seen and examined, family at bedside, all questions answered. - Objective Resuscitation Status - Order Detail: 01/19/19 12:10 Resuscitation Status Routine Resuscitation Status: DNAR: NO Resuscitation Discussed with: family Vital Signs & Weight: Vital Signs (12 hours) Temp Pulse Ox 01/19/19 12:00 97.4 F L 01/19/19 11:00 97.4 F L 01/19/19 07:40 97.8 F 100 01/19/19 07:00 97.8 F 01/19/19 04:00 97.8 F Weight Weight 146 lb 9.718 oz Most Recent Monitor Data Heart Rate from ECG 93 NIBP 113/60 NIBP BP-Mean 77 Respiration from ECG 27 SpO2 100 I&O: 01/18/19 01/19/19 01/20/19 06:59 06:59 06:59 Intake Total 1984.3 220 Output Total 680 545 Balance 1304.3 -325 Result Diagrams: 01/19/19 03:55 01/19/19 05:54 Additional Labs: Accuchecks 01/19/19 01/19/19 01/18/19 11:54 11:00 20:37 POC Glucose 187 H 171 H 466 H 01/18/19 01/18/19 01/18/19 19:42 17:21 15:17 POC Glucose 236 H 245 H 188 H Phys Exam - Physical Examination Constitutional: NAD HEENT: PERRLA, moist MMs, sclera anicteric Neck: no nodes, no JVD, supple Respiratory: no wheezing, no rales, no rhonchi Cardiovascular: RRR, no significant murmur, no rub Gastrointestinal: soft, non-tender, no distention, positive bowel sounds Musculoskeletal: pulses present, edema present (trace) Dx/Plan (1) Pancreatic cancer Status: Acute (2) Acute kidney failure Status: Acute (3) Hyperglycemia due to type 2 diabetes mellitus Code(s): E11.65 - TYPE 2 DIABETES MELLITUS WITH HYPERGLYCEMIA Status: Acute (4) Metabolic acidosis Code(s): E87.2 - ACIDOSIS Status: Acute (5) BPH (benign prostatic hyperplasia) Code(s): N40.0 - BENIGN PROSTATIC HYPERPLASIA WITHOUT LOWER URINRY TRACT SYMP Status: Chronic - Plan * continue current plan of care * change status to DNR * long discussion held with family, they state they'd like to make patient DNR, but would like to try chemo + radiation if this is an option, if the patient doens't do well they're willing to consider hospice care * keep in ICU for now * can likely switch out in AM * case and plan d/w patient's family at length, they understood and agreed with this plan.
[2019-01-19] MEDS ORDERED: HYDROcodone/Acetaminophen 10/325 mg Tablet PO PRN (20:29)
[2019-01-20] MEDS: Piperacillin/Tazobactam 2.25 GM in Sodium Chloride 0.9% 100 ML IVPB SCH ×3 (03:16→17:33)
[2019-01-20 04:39] LABS: Anion Gap 14 mmol/L (10-20); BUN (Urea Nitrogen) 78 mg/dL (8.4-25.7); Calc. Creatinine Clearance 26 mL/min (70-130); Calcium 10.6 mg/dL (7.8-10.44); Carbon Dioxide 20 mmol/L (23-31); Chloride 124 mmol/L (98-107); Estimated GFR-MDRD 37; Glucose 121 mg/dL (83-110); Potassium 3.5 mmol/L (3.5-5.1); Sodium 154 mmol/L (136-145)
[2019-01-20] MEDS: Dextrose 5 %-0.45 % NaCl 1,000 ML IV SCH ×4 (05:43→20:49)
--- NOTE | 2019-01-20 09:22 | PRG ---
DATE OF SERVICE: 01/20/2019 SUBJECTIVE: The patient will awaken. He does not have any acute complaints. OBJECTIVE: VITAL SIGNS: Temperature is 97.9, pulse 109, blood pressure 119/48. A 24-hour intake 2399, output 1940. HEENT: Unremarkable. NECK: No JVD. LUNGS: Clear. CARDIAC: S1 and S2. Regular. ABDOMEN: Mildly tender to deep palpation. EXTREMITIES: No edema. LABORATORY DATA: Sodium 154, potassium 3.5, chloride 124, CO2 of 20, BUN 78, creatinine 2.1, and glucose 121. ASSESSMENT: 1. The patient basically presents with dehydration and ketosis. I do not think he is currently in diabetic ketoacidosis. 2. Pancreatic cancer with widespread metastatic disease. 3. Acute renal failure. 4. Transaminitis from hepatic metastasis. RECOMMENDATIONS: I would recommend that he be transitioned off the insulin drip on to subcutaneous insulin and send out to the floor. It will probably take several days for his sodium to be reduced. No further Pulmonary recommendations at this time. Job ID: [id number]
--- NOTE | 2019-01-20 10:36 | PRG ---
DATE OF SERVICE: 01/20/2019 SUBJECTIVE: Mr. Smith is an 83-year-old black male with a history of diabetes mellitus, metastatic pancreatic cancer and was seen by Renal Service for his acute kidney injury. At that time, I felt that this was a hemodynamically-mediated renal dysfunction due to volume depletion. He was started on IV hydration, which has helped improve his renal function. IV fluid has been changed to a D5 half-normal saline due to the mild hypernatremia. No other complaints. He is more awake. OBJECTIVE: VITAL SIGNS: Blood pressure is 119/48, heart rate is 109, respiratory rate is 5, and pulse ox is 98%. GENERAL: Awake, comfortable, not in overt distress. SKIN: Decreased turgor. HEENT: He has a slightly pale conjunctivae. Anicteric sclerae. NECK: No neck mass. No carotid bruits. No JVD. CHEST: No deformities. LUNGS: Harsh breath sounds. HEART: Normal sinus rhythm. No murmur. No gallops. No rubs. ABDOMEN: Globular, soft, nontender. No masses. EXTREMITIES: No edema. MEDICATIONS: Medications of January 20, 2019, reviewed. LABORATORY DATA: Laboratories of January 20, 2019; sodium 154, potassium 3.5, chloride 124, carbon dioxide 20, BUN 78, creatinine 2.09, calcium 10.6, glucose 223. ASSESSMENT AND PLAN: 1. ? of diabetic ketoacidosis-currently on insulin drip. Continuing D5 half-normal saline. 2. Mild hypernatremia-we will increase D5 half-normal saline to 150 mL/hour. 3. Acute kidney [id number] renal dysfunction. Continue gentle volume repletion. Renal function is improving with current IV fluid. 4. This patient is not a candidate for any dialytic intervention due to his terminal pancreatic cancer. Job ID: [id number]
--- NOTE | 2019-01-20 10:53 | PDOC.EVN ---
Event Note - Event Note Event Note: To whom it may concern, This is a work note for patient's family member, the patient was admitted to [facility] ICU for medical care. Date of admission was 01/18/2019, please excuse the family member as they were present to provide support and care for their family member. If any questions, please call the hospital for further assistance. Sincerely, Dr. Corey Jiménez [facility]
--- NOTE | 2019-01-20 10:55 | PDOC.PN ---
- Subjective Encounter Start Date: 01/20/19 Encounter Start Time: 10:53 Patient seen and examined, no new changes over last 24 hours, no family at bedside. - Objective Resuscitation Status - Order Detail: 01/19/19 12:10 Resuscitation Status Routine Resuscitation Status: DNAR: NO Resuscitation Discussed with: family Vital Signs & Weight: Vital Signs (12 hours) Temp 01/20/19 07:00 97.6 F 01/20/19 04:00 98.3 F Weight Admit Weight 146 lb 9.6 oz Weight 146 lb 9.718 oz Most Recent Monitor Data Heart Rate from ECG 106 NIBP 102/53 NIBP BP-Mean 69 Respiration from ECG 24 SpO2 99 I&O: 01/19/19 01/20/19 01/21/19 06:59 06:59 06:59 Intake Total 1984.3 2399.8 Output Total 680 1940 245 Balance 1304.3 459.8 -245 Result Diagrams: 01/19/19 03:55 01/20/19 04:11 Additional Labs: Accuchecks 01/19/19 01/19/19 11:54 11:00 POC Glucose 187 H 171 H Phys Exam - Physical Examination Constitutional: NAD HEENT: PERRLA, moist MMs, sclera anicteric Neck: no nodes, no JVD, supple Respiratory: no wheezing, no rales, no rhonchi Cardiovascular: RRR, no significant murmur, no rub Gastrointestinal: soft, non-tender, no distention, positive bowel sounds +fluid wave Musculoskeletal: pulses present, edema present (trace) Dx/Plan (1) Pancreatic cancer Status: Acute (2) Acute kidney failure Status: Acute (3) Hyperglycemia due to type 2 diabetes mellitus Code(s): E11.65 - TYPE 2 DIABETES MELLITUS WITH HYPERGLYCEMIA Status: Acute (4) Metabolic acidosis Code(s): E87.2 - ACIDOSIS Status: Acute (5) BPH (benign prostatic hyperplasia) Code(s): N40.0 - BENIGN PROSTATIC HYPERPLASIA WITHOUT LOWER URINRY TRACT SYMP Status: Chronic - Plan * adjusted fluids for high Na * very poor prognosis overall * hospice/palliation discussed yesterday, family wanted to speak to oncology prior to deciding plan of care * will await family decision, no one at bedside, calls placed to numbers given. Ms. Susan Gonzalez is the primary decision maker, phone number called at [phone] but with no answer * continue current plan of care for now, family aware of possible poor prognosis
--- NOTE | 2019-01-20 12:56 | PDOC.CTH ---
Cardiology Progress Note - Subjective No new issues. More alert this morning. - Objective Vital Signs Temp Pulse Pulse BP BP Pulse Ox 01/20/19 12:00 98.0 F 01/20/19 08:58 73 74 102/59 L 121/51 L 01/20/19 08:00 98 01/20/19 07:00 97.6 F 01/20/19 04:00 98.3 F Admit Weight 146 lb 9.6 oz Weight 146 lb 9.718 oz 01/19/19 01/20/19 01/21/19 06:59 06:59 06:59 Intake Total 1984.3 2399.8 130 Output Total 680 1940 520 Balance 1304.3 459.8 -390 - Physical Examination General/Neuro: NAD Neck: no JVD present Lungs: unlabored respirations Heart: RRR Abdomen: NT/ND Extremities: + edema B (1+) - Telemetry Telemetry Rhythm: NSR - Labs Result Diagrams: 01/19/19 03:55 01/20/19 04:11 Troponin/CKMB CK-MB (CK-2) 5.2 ng/mL (0-6.6) 01/18/19 20:19 Troponin I 0.406 ng/mL (< 0.028) H* 01/18/19 23:09 - Assessment/Plan 1. AMS 2. NSTEMI, demand ischemia. 3. Metabolic acidosis 4. Acute on chronic CKD 5. Metastatic Pancreatic Ca. PLAN: - CV stable. - No new recs.
[2019-01-21] MEDS: Piperacillin/Tazobactam 2.25 GM in Sodium Chloride 0.9% 100 ML IVPB SCH ×3 (02:32→17:28)
[2019-01-21 06:43] LABS: Anion Gap 12 mmol/L (10-20); BUN (Urea Nitrogen) 49 mg/dL (8.4-25.7); Calc. Creatinine Clearance 34 mL/min (70-130); Calcium 10.6 mg/dL (7.8-10.44); Carbon Dioxide 20 mmol/L (23-31); Estimated GFR-MDRD 51; Glucose 141 mg/dL (83-110); Potassium 3.5 mmol/L (3.5-5.1); Sodium 155 mmol/L (136-145)
[2019-01-21 06:48] LABS: Chloride 127 mmol/L (98-107)
[2019-01-21] MEDS ORDERED: Dextrose 5% in Water 1,000 ML IV PRN (08:35)
[2019-01-21] MEDS ORDERED: Dextrose 50% Abboject 50 ML SYRINGE SLOW IVP PRN (08:35)
--- NOTE | 2019-01-21 09:07 | PRG ---
DATE OF SERVICE: 01/21/2019 SUBJECTIVE: Mr. Smith is awake, alert, has no acute complaints. OBJECTIVE: VITAL SIGNS: Temperature is 99.1, pulse 113, blood pressure 130/56, and O2 saturation 99%. HEENT: Unremarkable. NECK: No JVD. LUNGS: Clear. CARDIAC: S1 and S2. Regular. ABDOMEN: Distended. EXTREMITIES: No edema. LABORATORY DATA: Sodium 155, potassium 3.5, chloride 127, CO2 of 20, BUN 49, creatinine 1.6, glucose 156, and calcium 10.6. White blood cell count 17.5, hematocrit 30.7, and platelet count 70. ASSESSMENT: 1. Dehydration and ketosis. 2. Pancreatic cancer with widespread metastatic disease. 3. Acute renal failure. 4. Transaminitis. PLAN: He will be transferred out to Oncology. I will put him on D5W to give more free water. He will be placed on Lantus insulin and sliding scale insulin. His prognosis is poor. He is DNR. Job ID: [id number]
[2019-01-21] MEDS: Dextrose 5% in Water 1,000 ML IV SCH ×2 (09:09→23:08)
[2019-01-21] MEDS: Dextrose 5 %-0.45 % NaCl 1,000 ML IV SCH (09:33)
--- NOTE | 2019-01-21 09:45 | PDOC.PN ---
- Subjective Encounter Start Date: 01/21/19 Encounter Start Time: 11:40 -: non-verbal Subjective: Patient sleeping, arousable but not speaking. - Objective Resuscitation Status - Order Detail: 01/19/19 12:10 Resuscitation Status Routine Resuscitation Status: DNAR: NO Resuscitation Discussed with: family MAR Reviewed: Yes Vital Signs & Weight: Vital Signs (12 hours) Temp 01/21/19 05:00 99.1 F 01/21/19 00:00 98.8 F Weight Admit Weight 146 lb 9.6 oz Weight 146 lb 9.718 oz Most Recent Monitor Data Heart Rate from ECG 113 NIBP 130/56 NIBP BP-Mean 80 Respiration from ECG 15 SpO2 99 I&O: 01/20/19 01/21/19 01/22/19 06:59 06:59 06:59 Intake Total 2399.8 3696.3 Output Total 1940 1930 Balance 459.8 1766.3 Result Diagrams: 01/19/19 03:55 01/21/19 05:32 Additional Labs: Accuchecks 01/21/19 01/21/19 01/21/19 05:12 04:18 03:17 POC Glucose 156 H 154 H 161 H 01/21/19 01/21/19 01/21/19 02:17 01:20 00:16 POC Glucose 165 H 160 H 189 H 01/20/19 01/20/19 01/20/19 23:07 22:17 21:35 POC Glucose 188 H 193 H 201 H 01/20/19 01/20/19 01/20/19 20:10 18:12 17:14 POC Glucose 203 H 143 H 158 H 01/20/19 01/20/19 01/20/19 15:54 14:20 13:28 POC Glucose 136 H 164 H 159 H 01/20/19 01/20/19 01/20/19 12:03 11:13 10:10 POC Glucose 200 H 208 H 222 H Phys Exam - Physical Examination Constitutional: NAD HEENT: moist MMs Respiratory: no wheezing, no rales, no rhonchi Cardiovascular: RRR Gastrointestinal: soft, positive bowel sounds Neurological: non-focal Deviation from normal: sleepy, not speaking Dx/Plan (1) Pancreatic cancer Status: Acute Comment: metastatic, palliative care and oncology today (2) Acute kidney failure Status: Acute (3) Hyperglycemia due to type 2 diabetes mellitus Code(s): E11.65 - TYPE 2 DIABETES MELLITUS WITH HYPERGLYCEMIA Status: Acute (4) Metabolic acidosis Code(s): E87.2 - ACIDOSIS Status: Acute (5) BPH (benign prostatic hyperplasia) Code(s): N40.0 - BENIGN PROSTATIC HYPERPLASIA WITHOUT LOWER URINRY TRACT SYMP Status: Chronic (6) Demand ischemia Code(s): I24.8 - OTHER FORMS OF ACUTE ISCHEMIC HEART DISEASE Status: Acute - Plan cont current plan of care, PT/OT family to discuss plan with palliative care and oncology * . - Discharge Day Encounter end time: 11:50
[2019-01-21] MEDS: Insulin Glargine 25 UNITS in Pre-Filled Syringe 1 EACH SC SCH (10:00)
[2019-01-21] MEDS: Insulin Regular 300 UNITS/3 ML VIAL SC PRN ×3 (11:19→20:44)
--- NOTE | 2019-01-21 11:29 | PQF ---
IRIS MOSER, MERVAT HAMILTON MD [id number] CCU-A06 [id number] CLINICAL DOCUMENTATION IMPROVEMENT CLARIFICATION FORM: ICD-10 Updated PLEASE DO AN ADDENDUM TO THE PROGRESS NOTE WITH ANY DOCUMENTATION UPDATES OR ADDITIONS AND CARRY THROUGH TO DC SUMMARY. THANK YOU. Date: 01/21 ATTN: DR. MERVAT TRAN Please exercise your independent, professional judgment in responding to the clarification form. Clinical indicators are provided on the bottom of this form for your review. Please check appropriate box(s): [ X ] Protein Calorie Malnutrition: [ ] Mild [ ] Moderate [ X ] Severe [ ] Other Malnutrition (please specify) __ [ ] Underweight without malnutrition [ ] Cachexia [ ] Other diagnosis [ ] Unable to determine In addition, please specify: Present on Admission (POA): [ X ] Yes [ ] No [ ] Unable to determine CLINICAL INDICATORS - SIGNS / SYMPTOMS / LABS BMI: 22.3 ER REPORT 01/18: NO PO INTAKE SINCE 01/10, PT CACHECTIC, FRAIL H&P 01/18 (WEN): POOR PO INTAKE; PHY EXAM: GENERAL: OVERALL, THE PT APPEARS TO BE CACHECTIC AT THIS POINT NUTRITION ASSMT 01/19: TRIGGERED FOR WT LOSS; PO INTAKE POOR X1 WK; WEIGHT LOSS OF -21% X1 MONTH PER DOCUMENTED WTS, SIGNIFICANT WT LOSS RISKS: METASTATIC PANCREATIC CX TO BONES, LIVER & LUNGS NO PO INTAKE SINCE RADIATION TREATMENT ON 01/10 TREATMENT: SURESH ANDREWS TID (01/19 - PRESENT) SPEECH CONSULT (01/19) NUTRITION ASSMT (01/19) Moderate Malnutrition (in acute illness) Energy Intake: <75% of estimated energy requirement for > 7 days Weight Loss: 1-2%/1 week; 5%/ 1 month; 7.5%/3 months Other: mild body fat loss; mild muscle mass loss; mild fluid accumulation; Severe Malnutrition (in acute illness) Energy Intake: < 50% of estimated energy requirement for > 5 days Weight Loss: >1-2%/1 week; >5%/1 month; >7.5%/3 months Other: moderate body fat loss; moderate muscle mass loss; moderate- severe fluid accumulation; measurably reduced paranormal investigator strength Moderate Malnutrition (in chronic illness) Energy Intake: <75% of estimated energy requirement for >1 month Weight Loss: 5%/1 month; 7.5%/3 months; 10%/6 months; 20%/1 year Other: mild body fat loss; mild muscle mass loss; mild fluid accumulation Severe Malnutrition (in chronic illness) Energy Intake: <75% of estimated energy requirement for >1 month Weight Loss: >5%/1 month; >7.5%/3 months; >10%/6 months; >20%/1 year Other: severe body fat loss; severe muscle mass loss; severe fluid accumulation; measurably reduced paranormal investigator strength THANK YOU! Danette (This form is maintained as a part of the permanent medical record) 2015 [employer]. All Rights Reserved Danette Carey RN, BSN [email or web address] Office: [phone] [facility]
--- NOTE | 2019-01-21 11:53 | PQF ---
EHSANIRIS, MERVAT HAMILTON MD [id number] [facility]-A06 [id number] CLINICAL DOCUMENTATION IMPROVEMENT CLARIFICATION FORM: ICD-10 Updated PLEASE DO AN ADDENDUM TO THE PROGRESS NOTE WITH ANY DOCUMENTATION UPDATES OR ADDITIONS AND CARRY THROUGH TO DC SUMMARY. THANK YOU. DATE: 01/21 ATTN: DR. MERVAT TRAN Please exercise your independent, professional judgment in responding to the clarification form. Clinical indicators are provided on the bottom of this form for your review. Please check appropriate box(s): [ X ] Encephalopathy: Type: [ ] Acute [ ] Subacute [ ] Chronic Etiology: [ X ] Metabolic [ X ] Toxic [ ] Septic [ ] Other (please specify) [ ] Other diagnosis [ ] Unable to determine In addition, please specify: Present on Admission (POA): [ X ] Yes [ ] No [ ] Unable to determine For continuity of documentation, please document condition throughout progress notes and discharge summary. Thank You. CLINICAL INDICATORS - SIGNS / SYMPTOMS / LABS ER PRESENTATION 01/18: EVALUATION FOR AMS & DECREASED PO INTAKE; PT ORIENTED TO PERSON; FINAL DIAGNOSES: DEHYDRATION, AMS, KHALIF H&P (WEN) 01/18: HX OF PRESENT ILLNESS: THE PATIENT UNABLE TO PROVIDE ANY HISTORY BECAUSE OF HIS AMS AT THIS POINT; NEURO: THE PT IS DROWSY. HE WILL RESPOND TO HIS NAME, WILL NOT FOLLOW COMMANDS AT THIS POINT, PT NOT COOPERATIVE ; ASSESSMENT: 1) DKA, 4) AMS, LIKELY BECAUSE OF HIS CURRENT METABOLIC ACIDOSIS; 7) THE PT APPEARED SEPTIC ON ADMISSION. UNKNOWN INFECTION NEPHROLOGY CONSULT 01/18: PHY EXAM: GENERAL - THE PT IS CONFUSED PULMONOLOGY CONSULT 01/19: HX OF PRESENT ILLNESS - HE WAS BROUGHT IN YESTERDAY W / AMS FOR ABOUT 1 WK PRIOR TO ADMISSION. ...THIS MORNING HE IS AWAKE & ALERT. CARDIOLOGY CONSULT 01/19: PHY EXAM: GENERAL: SOMNOLENT. NONVERBAL; PN 01/20 - MORE ALERT THIS MORNING; ASSESSMENT: 1) AMS PULMONOLOGY PN 01/21: SUBJ - MR MOSER IS AWAKE, ALERT, HAS NO ACUTE COMPLAINTS RISK FACTORS: DKA METASTATIC PANCREATIC CANCER METABOLIC ACIDOSIS TREATMENTS: DKA PROTOCOL IN CCU IV ANTIBIOTIC (ZOSYN 01/18 - PRESENT) IVF (PER DKA PROTOCOL 01/18 - PRESENT) THANK YOU! Danette (This form is maintained as a part of the permanent medical record) 2014 [employer] All Rights Reserved Danette Carey RN, BSN [email or web address] Office: [phone] [facility]
--- NOTE | 2019-01-21 12:07 | PQF ---
IRIS MOSER, MERVAT HAMILTON MD [id number] CCU-A06 [id number] CLINICAL DOCUMENTATION IMPROVEMENT CLARIFICATION FORM: ICD-10 Updated PLEASE DO AN ADDENDUM TO THE PROGRESS NOTE WITH ANY DOCUMENTATION UPDATES OR ADDITIONS AND CARRY THROUGH TO DC SUMMARY. THANK YOU. DATE: 01/21 ATTN: DR. MERVAT TRAN Please exercise your independent, professional judgment in responding to the clarification form. Clinical indicators are provided on the bottom of this form for your review. Please check appropriate box(es): [ X ] Sepsis due to: (Pna, UTI, gangrenous gall bladder, etc.) __UTI [ ] SIRS due to non-infectious process (please specify etiology) [ ] with organ dysfunction [ ] without organ dysfunction [ ] Severe sepsis with acute organ dysfunction of: Acute Kidney Injury [ ] Localized infection without sepsis [ ] Sepsis Ruled Out [ ] Other diagnosis [ ] Unable to determine In addition, please specify: Present on Admission (POA): [ X ] Yes [ ] No [ ] Unable to determine For continuity of documentation, please document condition throughout progress notes and discharge summary. Thank You. CLINICAL INDICATORS - SIGNS / SYMPTOMS / LABS ER PRESENTATION 01/18: EVALUATION FOR AMS T: 95.5 (ORAL) RR: 22 WBC: 22.2 LACTIC ACID: 2.3 ER PHYSICIAN DIAGNOSES: AMS, KHALIF, DEHYDRATION H&P 01/18 (WEN): ASSESSMENT/PLAN: 1) DKA; 2) KHALIF, LIKELY ATN FROM DEHYDRATION; 4) AMS; 9) LEUKOCYTOSIS; PLAN - 7) THE PATIENT APPEARED SEPTIC ON ADMISSION, UNKNOWN INFECTION. URINALYSIS 01/18: POSITIVE NITRITE, LARGE LEUKOCYTE ESTERASE, WBC TNTC, 1+ BACTERIA URINE CULTURE: CITROBACTER KOSERI NO FURTHER MENTION OF SEPSIS TO DATE RISK FACTORS: POSITIVE URINE CULTURE AMS KHALIF TREATMENTS: IV ANTIBIOTIC (ZOSYN 01/18 - PRESENT) THANK YOU! Danette (This form is maintained as a part of the permanent medical record) 2014 [employer]. All Rights Reserved Danette Carey RN, BSN [email or web address] Office: [phone] [email or web address]
--- NOTE | 2019-01-21 12:22 | PQF ---
IRIS MOSER FREDERICK [place] MD [id number] CLINICAL DOCUMENTATION IMPROVEMENT CLARIFICATION FORM: ICD-10 Updated PLEASE DO AN ADDENDUM TO THE PROGRESS NOTE WITH ANY DOCUMENTATION UPDATES OR ADDITIONS AND CARRY THROUGH TO DC SUMMARY. THANK YOU. DATE: ATTN: DR. INNA WOLF Please exercise your independent, professional judgment in responding to the clarification form. Clinical indicators are provided on the bottom of this form for your review. Please check appropriate box(s) to clarify if the following diagnosis has been ruled in or ruled out: ACUTE TUBULAR NECROSIS [ ] Ruled in diagnosis [ ] Continue to treat [ ] Resolved [x ] Ruled out diagnosis [x ] Other diagnosis _Pre - renal azotemia [ ] Unable to determine In addition, please specify: Present on Admission (POA): [ x ] Yes [ ] No [ ] Unable to determine For continuity of documentation, please document condition throughout progress notes and discharge summary. Thank You. CLINICAL INDICATORS - SIGNS / SYMPTOMS / LABS ATTENDING H&P DOCUMENTATION 01/18: ASSESSMENT - 2) ACUTE KIDNEY INJURY, LIKELY ACUTE TUBULAR NECROSIS FROM DEHYDRATION; I DID CONSULT THE PATIENT'S NEPHROLOGY , DR. WOLF. WE WILL CONTINUE IVF AT THIS POINT & LIMIT NEPHROTOXIC AGENT AT THIS POINT. SURGICAL ATTENDANT (MARYANN) H&P 01/18: ASSESSMENT/PLAN - 1) KHALIF - I SUSPECT A HEMODYNAMICALLY-MEDIATED RENAL DYSFUNCTION; 2) CONSIDER DOING URINALYSIS JUST TO RULE OUT ANY ATN WITH THIS PATIENT NEPHROLOGY (MARYANN) PN 01/19: ASSESSMENT/PLAN - 1) KHALIF ON TOP OF CHRONIC RENAL FAILURE, SLOWLY IMPROVING RENAL FUNCTION. CONTINUE IV HYDRATION NEPHROLOGY (MARYANN) PN 01/20: ASSESSMENT/PLAN - 3) KHALIF-HEMODYNAMICALLY MEDIATED RENAL DYSFUNCTION. CONTINUE GENTLY VOLUME REPLETION. RENAL FUNCTION IS IMPROVING WITH CURRENT IVF. RISK FACTORS: ACUTE KIDNEY INJURY DEHYDRATION POOR PO INTAKE FOR 1 WEEK TREATMENTS: IVF (01/18 - PRESENT) URINALYSIS (01/18, 0146 & 1624) THANK YOU! Danette (This form is maintained as a part of the permanent medical record) 2014 [employer] 2000. All Rights Reserved Danette Carey RN, BSN [email or web address] Office: [phone] [facility]
--- NOTE | 2019-01-21 13:20 | PDOC.CTH ---
Cardiology Progress Note - Subjective Remains confused. - Objective Vital Signs Temp Pulse Ox 01/21/19 12:00 100 F H 01/21/19 08:00 97.7 F 99 01/21/19 05:00 99.1 F Admit Weight 146 lb 9.6 oz Weight 146 lb 9.718 oz 01/20/19 01/21/19 01/22/19 06:59 06:59 06:59 Intake Total 2399.8 3696.3 694 Output Total 1940 1930 275 Balance 459.8 1766.3 419 - Physical Examination General/Neuro: NAD Neck: no JVD present Lungs: CTA, unlabored respirations Heart: RRR Abdomen: NT/ND Extremities: other: (no edmea) - Labs Result Diagrams: 01/19/19 03:55 01/21/19 05:32 Troponin/CKMB CK-MB (CK-2) 5.2 ng/mL (0-6.6) 01/18/19 20:19 Troponin I 0.406 ng/mL (< 0.028) H* 01/18/19 23:09 - Assessment/Plan 1. AMS 2. NSTEMI, demand ischemia. 3. Metabolic acidosis 4. Acute on chronic CKD 5. Metastatic Pancreatic Ca. PLAN: - CV stable. - Continue current meds. - No new recs.
[2019-01-21 20:32] LABS: Glucose Accucheck Confirmation 242 mg/dl (83-110)
--- NOTE | 2019-01-21 22:44 | CON ---
DATE OF CONSULTATION: REASON FOR CONSULT: Pancreatic cancer. HISTORY OF PRESENT ILLNESS: Mr. Smith is an 83-year-old male who was diagnosed with metastatic pancreatic cancer in early 11/2018. He had a 3.3 x 2.7 x 4.1 cm mass in the tail of the pancreas, which extended to the left lateral abdominal wall. There was some possible splenic involvement. He had multiple masses in each lobe of the liver, the largest was measuring 1.7 cm. He also had a lytic lesion in L3 measuring 3.6 x 3.1 cm with pathological fracture. He saw Dr. Barragan in November. Due to the patient's pain, he underwent palliative radiation to his L3 lesion. Radiation was completed on 01/10/2019. Over the past week, family states that the patient has had altered mental status with decreased p.o. intake. He was brought to the emergency room for evaluation. CT of the abdomen, pelvis, and chest showed progressing metastatic liver and bone lesions. There was a pathological left lateral 7th rib fracture. He had focal consolidation of the left lower lung, similar appearance of the pancreatic tail mass. There was a large lytic focus within the T5 vertebrae as well as the T10 and T11. The patient had an elevated creatinine of 3.94 with elevated sodium of 153. He was admitted for further treatment and given IV fluids. Dr. Porter has seen the patient and monitoring his kidney function. Dr. Kearns in Critical Care saw the patient. He has been started on IV fluids and antibiotics. We are asked to see the patient regarding his prognosis. PAST MEDICAL HISTORY: 1. Recently diagnosed metastatic pancreatic cancer. 2. Type 2 diabetes mellitus. 3. Hypertension. 4. Hyperlipidemia. 5. BPH. 6. Chronic kidney disease. 7. Osteoarthritis. PAST SURGICAL HISTORY: Vertebral biopsy. ALLERGIES: NO KNOWN DRUG ALLERGIES. CURRENT MEDICATIONS: 1. [place] p.r.n. 2. Zosyn q.8 hours. 3. Sliding scale insulin. FAMILY HISTORY: No history of cancer. SOCIAL HISTORY: Single, has 9 children. Lives with child. He reports formal alcohol use. No tobacco or illicit drug use. REVIEW OF SYSTEMS: The patient denies complaints except for intermittent back pain. PHYSICAL EXAMINATION: VITAL SIGNS: Temperature 100.0, pulse is 104, respiratory rate 18, blood pressure is 91/46, and he is 96% on 2 L. GENERAL: Well-developed, well-nourished male, in no acute distress. HEENT: Normocephalic and atraumatic. Pupils are equal and reactive to light. NECK: Supple. CV: Tachycardia with regular rate and rhythm. LUNGS: Clear anteriorly. ABDOMEN: Soft, nontender. Bowel sounds are positive. EXTREMITIES: No clubbing, cyanosis, or edema. SKIN: No rash. HEMATOLOGIC: No petechiae or purpura. NEUROLOGIC: Nonfocal. PSYCHIATRIC: The patient is alert and oriented x2. PERTINENT LABS AND X-RAYS: Current WBCs are 17.5, hemoglobin 9.6, hematocrit 30.7, and platelet count is 70,000. Sodium is 155, potassium 3.5, chloride 127, CO2 is 20, BUN is 49, creatinine 1.6, calcium is 10.6. Bilirubin is 1.1, AST is 130, ALT is 157, alkaline phosphatase is 547. Troponin is 0.406. Serum total protein 6.3, albumin 2.6, and globulin 3.7. ASSESSMENT: 1. Metastatic pancreatic cancer, status post palliative radiation to his L-spine. 2. Toxic metabolic encephalopathy. 3. Acute on chronic renal disease. DISCUSSION: The patient had an appointment with Dr. Barragan tomorrow to discuss chemotherapy options. The patient's performance status has declined significantly since he was last seen in the office as well as progression of his disease. I will discuss further with Dr. Barragan whether he would be a candidate for palliative chemotherapy at this point. Thank you for the consult. We will follow his hospital course. Job ID: [id number]
[2019-01-22] MEDS: Piperacillin/Tazobactam 2.25 GM in Sodium Chloride 0.9% 100 ML IVPB SCH ×3 (02:41→17:43)
[2019-01-22 05:39] LABS: Anion Gap 11 mmol/L (10-20); BUN (Urea Nitrogen) 41 mg/dL (8.4-25.7); Calc. Creatinine Clearance 36 mL/min (70-130); Calcium 9.8 mg/dL (7.8-10.44); Carbon Dioxide 18 mmol/L (23-31); Chloride 111 mmol/L (98-107); Estimated GFR-MDRD 46; Potassium 3.1 mmol/L (3.5-5.1); Sodium 137 mmol/L (136-145)
[2019-01-22 05:41] LABS: Glucose 663 mg/dL (83-110)
[2019-01-22] MEDS: Insulin Regular 300 UNITS/3 ML VIAL SC PRN ×2 (06:02→16:30)
--- NOTE | 2019-01-22 08:07 | PDOC.PN ---
- Subjective Encounter Start Date: 01/22/19 Encounter Start Time: 10:00 Subjective: Patient denies complaint. No SOB. No chest pain. No N/V. Blood sugar by -: finger stick repeatedly in the teens last night and this morning. Recheck -: by venous sample normal (high once when out of port having D5W in it). - Objective Resuscitation Status - Order Detail: 01/19/19 12:10 Resuscitation Status Routine Resuscitation Status: DNAR: NO Resuscitation Discussed with: family MAR Reviewed: Yes Vital Signs & Weight: Vital Signs (12 hours) Temp Pulse Resp BP Pulse Ox 01/22/19 03:49 98.3 F 104 H 16 104/51 L 95 01/21/19 23:54 98.5 F 108 H 20 109/52 L 94 L Weight Admit Weight 146 lb 9.6 oz Weight 169 lb 4 oz Most Recent Monitor Data Heart Rate from ECG 102 NIBP 104/49 NIBP BP-Mean 67 Respiration from ECG 13 SpO2 98 I&O: 01/21/19 01/22/19 01/23/19 06:59 06:59 06:59 Intake Total 3696.3 1316 Output Total 1930 600 Balance 1766.3 716 Result Diagrams: 01/19/19 03:55 01/22/19 05:13 Additional Labs: Accuchecks 01/22/19 01/21/19 01/21/19 05:29 16:29 13:16 POC Glucose Less than 35 L* 271 H 244 H 01/21/19 10:41 POC Glucose 202 H Phys Exam - Physical Examination Constitutional: NAD HEENT: moist MMs Respiratory: no wheezing, no rales, no rhonchi Cardiovascular: RRR Gastrointestinal: soft, positive bowel sounds Neurological: non-focal Psychiatric: normal affect Dx/Plan (1) Pancreatic cancer Status: Acute Comment: metastatic, palliative care and oncology today (2) Acute kidney failure Status: Acute Comment: improving (3) Hyperglycemia due to type 2 diabetes mellitus Code(s): E11.65 - TYPE 2 DIABETES MELLITUS WITH HYPERGLYCEMIA Status: Acute Comment: blood sugars very variable this AM, switch to venous samples only (4) Metabolic acidosis Code(s): E87.2 - ACIDOSIS Status: Acute (5) BPH (benign prostatic hyperplasia) Code(s): N40.0 - BENIGN PROSTATIC HYPERPLASIA WITHOUT LOWER URINRY TRACT SYMP Status: Chronic (6) Demand ischemia Code(s): I24.8 - OTHER FORMS OF ACUTE ISCHEMIC HEART DISEASE Status: Acute (7) UTI (urinary tract infection) Status: Acute Comment: Citrobacter, on abx (8) Sepsis Code(s): A41.9 - SEPSIS, UNSPECIFIED ORGANISM Status: Acute Comment: on abx , WBC improving some (9) Severe protein-calorie malnutrition Code(s): E43 - UNSPECIFIED SEVERE PROTEIN-CALORIE MALNUTRITION Status: Acute (10) Toxic metabolic encephalopathy Code(s): G92 - TOXIC ENCEPHALOPATHY Status: Acute Comment: improving some - Plan cont current plan of care, continue antibiotics, PT/OT * . - Discharge Day Encounter end time: 10:10
--- NOTE | 2019-01-22 09:17 | PRG ---
DATE OF SERVICE: 01/22/2019 SUBJECTIVE: Mr. Smith is an 83-year-old black male, who was seen by the Renal Service for an acute kidney injury on top of his chronic renal failure. He had a superimposed hemodynamically-mediated renal dysfunction. He was volume repleted with improvement in renal function. He also at the same time has known diagnosis of pancreatic cancer with metastases to the bones. He is being followed by Oncology. Consideration for palliative chemotherapy was made previously as an outpatient. No new complaints today. He is feeling better. The patient denies any chest pain or shortness of breath. OBJECTIVE: VITAL SIGNS: Blood pressure 156/77, heart rate 101, respiratory rate 20, temperature 97.9, pulse ox 94%. GENERAL: Noted to be awake, alert, comfortable, not in overt distress. SKIN: Adequate turgor. HEENT: Slightly pale conjunctivae. Anicteric sclerae. No neck mass. No carotid bruits. No JVD. CHEST: No deformities. LUNGS: Clear breath sounds. HEART: Normal sinus rhythm. No murmur. No gallops. No rubs. ABDOMEN: Globular, soft, nontender. No masses. EXTREMITIES: No edema. No deformities. MEDICATIONS: Medications of 01/22/2019, were reviewed. LABORATORY DATA: Laboratories of 01/22/2019, sodium 137, potassium 3.1, chloride 111, carbon dioxide 18, BUN 41, creatinine 1.73, glucose 663, calcium 9.8. Hemoglobin 9.6, white count 17.5. ASSESSMENT AND PLAN: 1. Acute kidney injury on top of his chronic renal failure - superimposed prerenal azotemia. Much improved with volume repletion. Creatinine of 1.71 is nearing baseline. There is no indication for any dialytic intervention. Also, this patient is not a dialysis candidate. 2. Pancreatic cancer with mets, supportive care. Oncology is following. 3. Mild hypokalemia. KCl 40 mEq one tab x1 dose. Overall, agree with current management. Job ID: [id number]
[2019-01-22] MEDS: Insulin Glargine 25 UNITS in Pre-Filled Syringe 1 EACH SC SCH (09:23)
--- NOTE | 2019-01-22 09:26 | PRG ---
DATE OF SERVICE: 01/22/2019 SUBJECTIVE: The patient is awake, alert, and seems to be doing well. OBJECTIVE: VITAL SIGNS: Temperature 97.9, pulse 101, respirations 20, O2 saturation 94%, and blood pressure 156/77. HEENT: Unremarkable. NECK: No JVD. CHEST: MediPort access left upper quadrant. LUNGS: Clear. CARDIAC: S1 and S2. Regular. ABDOMEN: Softer. EXTREMITIES: No edema. LABORATORY DATA: Sodium 137, potassium 3.1, chloride 111, CO2 of 18, BUN 41, creatinine 1.7, glucose is right on the chemistry is 663, but I also see Accu-Cheks at 2:42 was 35 in the computer. ASSESSMENT: 1. Pancreatic cancer, metastatic. 2. Dehydration and ketosis. 3. Acute renal failure. 4. Transaminitis. PLAN: I will handover medical management to the hospitalist team. There are no active pulmonary/critical care issues. We will sign off. Job ID: [id number]
[2019-01-22 11:59] LABS: Glucose Accucheck Confirmation 142 mg/dl (83-110)
[2019-01-22 18:11] VITALS: BMI 25.7
[2019-01-23] MEDS: Piperacillin/Tazobactam 2.25 GM in Sodium Chloride 0.9% 100 ML IVPB SCH ×2 (01:38→09:18)
[2019-01-23 06:32] LABS: Anion Gap 11 mmol/L (10-20); BUN (Urea Nitrogen) 49 mg/dL (8.4-25.7); Calc. Creatinine Clearance 36 mL/min (70-130); Calcium 11.5 mg/dL (7.8-10.44); Carbon Dioxide 23 mmol/L (23-31); Chloride 128 mmol/L (98-107); Estimated GFR-MDRD 45; Glucose 156 mg/dL (83-110); Potassium 3.7 mmol/L (3.5-5.1); Sodium 158 mmol/L (136-145)
--- NOTE | 2019-01-23 07:34 | PDOC.PN ---
- Subjective Encounter Start Date: 01/23/19 Encounter Start Time: 11:20 Subjective: Patient without complaints. No pain. No SOB. - Objective Resuscitation Status - Order Detail: 01/19/19 12:10 Resuscitation Status Routine Resuscitation Status: DNAR: NO Resuscitation Discussed with: family MAR Reviewed: Yes Vital Signs & Weight: Vital Signs (12 hours) Temp Pulse Resp BP Pulse Ox 01/22/19 20:00 92 L 01/22/19 19:45 97.9 F 101 H 16 118/58 L 91 L Weight Admit Weight 146 lb 9.6 oz Weight 169 lb 4 oz Most Recent Monitor Data Heart Rate from ECG 102 NIBP 104/49 NIBP BP-Mean 67 Respiration from ECG 13 SpO2 98 I&O: 01/22/19 01/23/19 01/24/19 06:59 06:59 06:59 Intake Total 1316 860 Output Total 600 1425 Balance 716 -565 Result Diagrams: 01/19/19 03:55 01/23/19 05:55 Additional Labs: Accuchecks 01/23/19 01/22/19 01/22/19 05:49 21:14 15:38 POC Glucose 162 H 139 H 172 H 01/21/19 01/21/19 01/20/19 19:58 06:17 19:30 POC Glucose Less than 35 L* 160 H 205 H Phys Exam - Physical Examination Constitutional: NAD HEENT: moist MMs Respiratory: no wheezing, no rales, no rhonchi Cardiovascular: RRR Gastrointestinal: soft, positive bowel sounds Neurological: non-focal Psychiatric: normal affect, A&O x 3 Dx/Plan (1) Pancreatic cancer Status: Acute Comment: metastatic, too weak for further chemo, plan to go home [facility] hosp[facility] (2) Acute kidney failure Status: Acute Comment: improving (3) Hyperglycemia due to type 2 diabetes mellitus Code(s): E11.65 - TYPE 2 DIABETES MELLITUS WITH HYPERGLYCEMIA Status: Acute Comment: blood sugars very variable this AM, switch to venous samples only (4) Metabolic acidosis Code(s): E87.2 - ACIDOSIS Status: Acute (5) BPH (benign prostatic hyperplasia) Code(s): N40.0 - BENIGN PROSTATIC HYPERPLASIA WITHOUT LOWER URINRY TRACT SYMP Status: Chronic (6) Demand ischemia Code(s): I24.8 - OTHER FORMS OF ACUTE ISCHEMIC HEART DISEASE Status: Acute (7) UTI (urinary tract infection) Status: Acute Comment: Citrobacter, on abx (8) Sepsis Code(s): A41.9 - SEPSIS, UNSPECIFIED ORGANISM Status: Acute Comment: on abx , WBC improving some (9) Severe protein-calorie malnutrition Code(s): E43 - UNSPECIFIED SEVERE PROTEIN-CALORIE MALNUTRITION Status: Acute (10) Toxic metabolic encephalopathy Code(s): G92 - TOXIC ENCEPHALOPATHY Status: Acute Comment: improving some - Plan cont current plan of care plan for home on hospice * . - Discharge Day Encounter end time: 11:30
[2019-01-23] MEDS: Insulin Glargine 25 UNITS in Pre-Filled Syringe 1 EACH SC SCH (09:17)
[2019-01-23 09:51] VITALS: BP 111/55; TEMP 99.3
--- NOTE | 2019-01-24 01:54 | DIS ---
DATE OF ADMISSION: 01/18/2019 DATE OF DISCHARGE: 01/23/2019 PRIMARY CARE PHYSICIAN: Kathrin Gaxiola DO PRIMARY ONCOLOGIST: Eduardo Barragan MD REASON FOR ADMISSION: Diabetic ketoacidosis and altered mental status. DIAGNOSES AT DISCHARGE: 1. Diabetic ketoacidosis, resolved. 2. Metastatic pancreatic cancer. 3. Diabetes mellitus type 2, insulin dependent. 4. Benign prostatic hyperplasia. 5. Urinary tract infection with sepsis. 6. Severe protein-calorie malnutrition. 7. Toxic metabolic encephalopathy, improved. 8. Non ST-elevation myocardial infarction from demand ischemia. PROCEDURES: 1. CT of the chest, abdomen, and pelvis without contrast showing hepatic metastatic disease and osseous metastatic disease with severe progression of L3 pathologic compression fracture, pathologic left lateral seventh rib fracture, large lytic focus on the anterior T5 vertebra as well as T10 and L1 per stable appearance of pancreatic tail mass and focal consolidation in the left lung base concerning for infection or aspiration. 2. CT of the head without contrast showing no acute intracranial process. 3. Echocardiogram showing ejection fraction of 65% to 70%. Grade 1/3 diastolic dysfunction and sigmoid-shaped septum without hemodynamically significant obstruction. CONSULTATIONS: 1. Nephrology, Dr. Porter. 2. Pulmonology, Dr. Kearns. 3. Cardiology, Dr. May. 4. Heme/Oncology, Montse Cortez for Dr. Barragan. SUMMARY OF HOSPITAL COURSE: This is an 83-year-old male with a history of recently diagnosed metastatic pancreatic cancer, sees Dr. Barragan. He came in with altered mental status and decreased p.o. intake for 1 week. He was noted to have severe acidosis with elevation of his blood sugar, also with non-ST elevation MD from demand ischemia. The patient was admitted, given antibiotics as well as fluids and insulin. He eventually had resolution of his acidosis. He had improvement in his mental status. Scans were done as above. The patient eventually grew back Citrobacter pansensitive in his urine and his antibiotics were being switched over. He had a discussion with Dr. Barragan. Given his decreased functional status and malnutrition, he is not a candidate for further palliative chemotherapy. At this point, the patient and family decided that he would go home on hospice. He has been made DNR. He is going to go with [facility], where he has a family member working. DISCHARGE MANAGEMENT: Discharged home on Home Hospice with [facility]. ACTIVITY: As tolerated. DIET: Diabetic diet. MEDICATIONS: 1. Cefdinir 300 mg twice a day, 10 caps dispensed. 2. Lantus insulin 25 units subcu q.a.m., one vial dispensed. 3. Other medications as per hospice. Job ID: [id number]
== END 2019-01-23 17:04 | disposition hospice, home (50) | DRG 871 ==
LOC: ERS 14:37 → CCU 21:59 → ONC 01-21 18:00
PROVIDERS: ADMIT Internal Medicine; ATTEND Internal Medicine
DX: A41.9 Sepsis, unspecified organism (principal); G92 Toxic encephalopathy; E43 Unspecified severe protein-calorie malnutrition; I21.A1 Myocardial infarction type 2; E11.10 Type 2 diabetes mellitus with ketoacidosis without coma; N17.9 Acute kidney failure, unspecified; N39.0 Urinary tract infection, site not specified; C25.9 Malignant neoplasm of pancreas, unspecified; C78.7 Secondary malignant neoplasm of liver and intrahepatic bile duct; C78.00 Secondary malignant neoplasm of unspecified lung; C79.51 Secondary malignant neoplasm of bone; E87.2 Acidosis; E87.0 Hyperosmolality and hypernatremia; M84.58XA Pathological fracture in neoplastic disease, other specified site, initial encounter for fracture; E88.89 Other specified metabolic disorders; Z51.5 Encounter for palliative care; Z66 Do not resuscitate; E86.0 Dehydration; E87.5 Hyperkalemia; I12.9 Hypertensive chronic kidney disease with stage 1 through stage 4 chronic kidney disease, or unspecified chronic kidney disease; E11.22 Type 2 diabetes mellitus with diabetic chronic kidney disease; N18.9 Chronic kidney disease, unspecified; D69.6 Thrombocytopenia, unspecified; E78.5 Hyperlipidemia, unspecified; N40.0 Benign prostatic hyperplasia without lower urinary tract symptoms; B96.89 Other specified bacterial agents as the cause of diseases classified elsewhere; Z92.3 Personal history of irradiation; Z79.84 Long term (current) use of oral hypoglycemic drugs; Z68.25 Body mass index [BMI] 25.0-25.9, adult
CPT/HCPCS: 36415; 36416; 51703; 70450; 71045; 71250; 74177; 80048; 80053; 81003; 81015; 82010; 82553; 82570; 82805; 83605; 83735; 83880; 84300; 84484; 85025; 87040; 87077; 87086; 87186; 93005; 93306; 96365; 96367; 96375; J1815; J1825; J2543; J3370; J3480; J7050